=== PATIENT | female | born 1950 | race Caucasian/White ===

== ENCOUNTER → 2016-09-04 | Outpatient (CLI) | payer OTHER ==
[~2016-09-04] MED LIST: CLEOCIN HCL150 MG PO; LIPITOR10 MG PO; TOBRAMYCIN SULFA5 ML IO; UNKNOWN BP MED
== END ==
LOC: HYPER 07:11
DX: S81.802D Unspecified open wound, left lower leg, subsequent encounter (principal); S81.801D Unspecified open wound, right lower leg, subsequent encounter; I87.323 Chronic venous hypertension (idiopathic) with inflammation of bilateral lower extremity; L03.115 Cellulitis of right lower limb; I89.0 Lymphedema, not elsewhere classified; F17.210 Nicotine dependence, cigarettes, uncomplicated; X58.XXXD Exposure to other specified factors, subsequent encounter

== ENCOUNTER → 2016-10-16 | Outpatient (CLI) | payer OTHER | LOC: HYPER 09-13 09:47 | DX: I87.323 Chronic venous hypertension (idiopathic) with inflammation of bilateral lower extremity (principal); L97.821 Non-pressure chronic ulcer of other part of left lower leg limited to breakdown of skin; L97.811 Non-pressure chronic ulcer of other part of right lower leg limited to breakdown of skin; I89.0 Lymphedema, not elsewhere classified; F17.210 Nicotine dependence, cigarettes, uncomplicated ==

== ENCOUNTER → 2016-12-20 | Outpatient (CLI) | payer OTHER | LOC: HYPER 11-02 15:18 | DX: L03.115 Cellulitis of right lower limb (principal); I87.323 Chronic venous hypertension (idiopathic) with inflammation of bilateral lower extremity; I89.0 Lymphedema, not elsewhere classified; R26.89 Other abnormalities of gait and mobility; F17.200 Nicotine dependence, unspecified, uncomplicated ==

== ENCOUNTER → 2017-12-04 | Outpatient (CLI) | payer OTHER | LOC: HYPER 11-22 06:51 | DX: I89.0 Lymphedema, not elsewhere classified (principal); I87.323 Chronic venous hypertension (idiopathic) with inflammation of bilateral lower extremity; F17.210 Nicotine dependence, cigarettes, uncomplicated ==

== ENCOUNTER → 2017-12-11 | Outpatient (CLI) | payer OTHER | LOC: HYPER 07:02 | DX: I87.323 Chronic venous hypertension (idiopathic) with inflammation of bilateral lower extremity (principal); L97.821 Non-pressure chronic ulcer of other part of left lower leg limited to breakdown of skin; L97.811 Non-pressure chronic ulcer of other part of right lower leg limited to breakdown of skin; I89.0 Lymphedema, not elsewhere classified; F17.200 Nicotine dependence, unspecified, uncomplicated ==

== ENCOUNTER 2017-12-25 16:57 | Inpatient (IN) | payer OTHER ==
[~2017-12-25] VITALS: Ht 154.9 cm; Wt 113.4 kg
--- NOTE | ~2017-12-25 | HC ---
[place] [address] CONSULTATION Name: DIMITRI CORREA Joel Room #: 424-P [facility] IN M.R.#: [id number] Admission: 12/25/17 Attend Phys: Romero Herring MD Discharge: Date of : 51 Report #: [id number] THIS REPORT FOR: //name// CC: Chris García DATE OF SERVICE: 12/26/2017 CHIEF COMPLAINT: Lymphedema and ulceration, bilateral lower extremities. HISTORY: This is a 67-year-old female patient who has been followed on an outpatient basis in the wound center. She has longstanding history of lower extremity lymphedema, ulceration of her left leg. She was seen in the clinic yesterday, felt to have significant cellulitis with significant pain, increasing swelling and is admitted. PAST MEDICAL HISTORY: Positive for history of venous insufficiency, bilateral cellulitis of lower extremities, lymphedema of both lower extremities and history of sepsis. ALLERGIES: PENICILLIN. SOCIAL HISTORY: The patient smokes cigarettes 1 pack per day. No alcohol use. FAMILY HISTORY: Noncontributory. MEDICATIONS: Reviewed in the MAR. REVIEW OF SYSTEMS: CONSTITUTIONAL: The patient denies fever, chills or weight loss. NEUROLOGICAL: The patient denies focal weakness. ENT: The patient denies earache, nasal drainage or sore throat. CARDIOVASCULAR: The patient denies chest pain or palpitations or diaphoresis. PULMONARY: The patient denies cough or shortness of breath. GASTROINTESTINAL: The patient denies nausea, vomiting, diarrhea or abdominal pain. ORTHOPEDIC: The patient admitted to significant swelling, pain, drainage from the lower extremities, left greater than right. Other systems in a 14-point review of systems are negative. PHYSICAL EXAMINATION: VITAL SIGNS: At this time include pulse 85, respiratory rate 18, blood pressure 124/92, temperature 98.0. GENERAL: This is a chronically ill-appearing female patient who appears to be in minimal distress. HEENT: Head is normocephalic. Nose and throat are clear. [address] [address] CONSULTATION Name: DIMITRI CORREA Room #: [address] [place] [address] [place] .R.#: [id number] Admission: 12/25/17 Attend Phys: Romero Herring MD Discharge: Date of : 51 Report #: [id number] NECK: Supple. LUNGS: Diminished. HEART: Regular rhythm. ABDOMEN: Soft, obese, nontender. EXTREMITIES: Lower extremities demonstrates significant lymphedema of both lower extremities. There is open ulceration almost circumferential around the left ankle. There is nothing open on the right side. There are multiple areas of lymph fistulas. NEUROLOGIC: Alert and oriented and appropriate. LABORATORY DATA: Includes sodium 138, potassium 3.2, chloride 105, CO2 of 28, BUN 11, creatinine 0.8, glucose 93. White blood cell count of 6.7 with a hemoglobin of 13.6, hematocrit of 41.1, platelet count is 216,000. Sed rate is 50. CLINICAL IMPRESSION: 1. Ulceration, left lower extremity. 2. Bilateral lower extremity lymphedema. 3. Cellulitis, bilateral lower extremities. RECOMMENDATIONS: At this point in time, the patient has been started with antibiotic therapy, likely to be tailored, pending culture results. Blood cultures thus far showing no growth. We will ask PT, OT to see her for lymphedema therapy and compression bandaging. Recommend elevation of the lower extremities. Elevation of the foot of the bed. I appreciate being asked to see her in consultation. <ELECTRONICALLY SIGNED> By: Gilles Mathews MD 12/30/17 [id number] Gilles Mathews MD /nt
--- NOTE | ~2017-12-25 | HC ---
[facility] [place] [address] CONSULTATION Name: DIMITRI CORREA Joel Room #: 424-P [facility] IN M.R.#: [id number] Admission: 12/25/17 Attend Phys: Romero Herring MD Discharge: Date of : 51 Report #: [id number] THIS REPORT FOR: //name// CC: Chris García DATE OF SERVICE: 12/26/2017 INFECTIOUS DISEASES CONSULTATION REASON FOR CONSULTATION: I was asked to evaluate concerning lower extremity lymphedema and left lower extremity infected skin wounds. HISTORY OF PRESENT ILLNESS: The patient is a 67-year-old, with chronic lymphedema, who has had nonhealing wound to the left ankle and foot for approximately 3 months. She has been on and off oral antibiotics without benefit. Most recently, was on Levaquin within the last 2 weeks. Presents now with increased pain, more swelling, profound drainage without associated fever, chills or sweats. The pain is constant. Does improve some with narcotics. The pain got up to a 10/10 prior to her admission. She has taken Defiance as well as Tylenol alone at home. She reports no specific injury. She has been unable to use her lymphedema pumps. Lymphedema has been a progressive issue for her for the last 2 years. She does smoke cigarettes and is obese. She has had venous ablation procedures. She states her arterial flow has been adequate. REVIEW OF SYSTEMS: Skin as noted above. No reported lymphadenopathy. Denies any visual or mucosal changes. No recent dental work. No cardiopulmonary complaints. No GI or complaints. She now has a right upper extremity PICC. Denies any back or flank pain. She walks with a cane. Has not been able to drive for the last several months. Denies any diabetic or hypothyroid symptoms. ALLERGIES: PENICILLIN WITH HIVES TO HER FEET. DOES NOT KNOW IF SHE HAS TOLERATED CEPHALOSPORINS OR OTHER PENICILLIN GROUP. SHE HAS RECENTLY BEEN ON CLINDAMYCIN AND LEVAQUIN WITHOUT ISSUE. MEDICATIONS: Currently, on Levaquin and vancomycin. In addition, Lovenox, Lasix, Defiance. PAST MEDICAL HISTORY: Hypertension, lymphedema, tubal ligation, breast augmentation. FAMILY HISTORY: No family history of inheritable diseases. SOCIAL HISTORY: No significant alcohol intake. She does smoke cigarettes about [facility] [address] [place] [place] [address] CONSULTATION Name: DIMITRI CORREA Joel Room #: [facility]-P [facility] IN .R.#: [id number] Admission: 12/25/17 Attend Phys: Romero Herring MD Discharge: Date of : 51 Report #: [id number] a pack a day. Review of systems as noted above. PHYSICAL EXAMINATION: VITAL SIGNS: The patient was afebrile and hemodynamically stable. Pulse is 87, blood pressure 144/46, respiratory rate 18. GENERAL: She was alert and cooperative. She was on 2 liters of oxygen per nasal cannula. She was obese. She was lying in bed, in no acute distress. SKIN: With xerosis diffusely. EXTREMITIES: Bilateral lower extremity lymphedema with venous stasis dermatitis changes, left greater than right. She had ulcerations involving her left lower leg, ankle and foot region. Large amount of serous drainage. Very tender in this region. Surrounding erythema. Erythema did not extend beyond the lower leg. No tenderness in her thighs. The lymphedema was 4+ on the left, 3+ on the right. LYMPH: No lymphadenopathy. HEENT: Eyes unremarkable. Mouth unremarkable. Hearing unremarkable. ENT, otherwise unremarkable. NECK: Supple. LUNGS: Clear. HEART: Regular without appreciable murmur, gallop or rub. ABDOMEN: Obese, soft, nontender, no hepatosplenomegaly or mass. EXTREMITIES: She is able to move all extremities. Sensation in her feet were normal. Pulses in the feet were normal. She had good capillary refill. Cranial nerves intact. Muscle strength appeared normal throughout. LABORATORY STUDIES: Venous Dopplers negative for DVT. Blood cultures showing Gram-positive rods, 1 out of 2, cultures pending. Sedimentation rate 50. Lactate 0.9. CRP 24. Sodium 138, potassium 3.2, bicarbonate 28, creatinine 0.8. Hemoglobin 13.6, white count 6.7 and platelet count 216,000. Differential unremarkable. IMPRESSION: A 67-year-old with extensive lymphedema and changes of elephantiasis to her lower extremities, now with secondary skin and soft tissue infection with venous stasis skin breakdown. Along with this, she has significant amount of pain. Other issues include tobacco use, hypertension, obesity. RECOMMENDATION: We will continue with vancomycin and Levaquin. Would like the patient to research her previous antibiotic prescriptions to see if she has tolerated cephalosporins. I have discussed with her in detail during this visit [address] [place] [address] CONSULTATION Name: DIMITRI CORREA Room #: 424-P [facility] IN M.R.#: [id number] Admission: 12/25/17 Attend Phys: Romero Herring MD Discharge: Date of : 51 Report #: [id number] regarding other options including weight loss, smoking cessation, low sodium diet, more aggressive leg elevation and continued wound care. <ELECTRONICALLY SIGNED> By: Timur Chauhan MD 12/27/17 1029 1418 1957 Timur Chauhan MD /nt
[2017-12-25 17:27] VITALS: BP 156/51
[2017-12-25 19:20] LABS: ABSOLUTE NEUTROPHILS 4.6 thou/uL (1.4-8.2); BASOPHILS 0.7 % (0.0-2.0); EOSINOPHILS 1.1 % (0.0-3.0); HEMATOCRIT 41.1 % (37.0-47.0); HEMOGLOBIN 13.6 gm/dL (12.0-15.0); LYMPHOCYTES 19.4 % (24.0-44.0); MCH 31.2 pg (26.0-34.0); MCV 94.6 fL (80.0-100.0); MONOCYTES 9.2 % (1.0-8.0); PLATELET COUNT 216 thou/uL (150-400); POLYS 69.6 % (36.0-66.0); RBC 4.35 mil/uL (4.20-5.00); RDW 17.6 % (10.5-14.5); WBC 6.7 thou/uL (4.0-11.0)
[2017-12-25 19:28] LABS: CALCIUM 8.5 mg/dL (8.5-10.1); CREATININE 0.8 mg/dL (0.6-1.0); POTASSIUM 3.2 mmol/L (3.5-5.1)
[2017-12-25 21:31] VITALS: BP 134/44
[2017-12-25 21:50] VITALS: BP 154/60
[2017-12-26 04:40] VITALS: BP 143/43
[2017-12-26 07:19] VITALS: BP 144/46
[2017-12-26 10:57] VITALS: BP 144/46
[2017-12-26 15:39] VITALS: BP 124/92
[2017-12-26 19:30] VITALS: BP 159/57
[2017-12-27 02:28] VITALS: BP 188/74
[2017-12-27 07:56] LABS: HEMATOCRIT 32.9 % (37.0-47.0); MCH 31.8 pg (26.0-34.0); MCHC 33.5 g/dL (28.0-37.0); PLATELET COUNT 216 thou/uL (150-400); RBC 3.46 mil/uL (4.20-5.00); RDW 17.6 % (10.5-14.5); WBC 4.7 thou/uL (4.0-11.0)
[2017-12-27 08:00] LABS: CREATININE 0.7 mg/dL (0.6-1.0); MAGNESIUM 1.6 mg/dL (1.8-2.4); POTASSIUM 3.9 mmol/L (3.5-5.1)
[2017-12-27 08:54] LABS: ABSOLUTE NEUTROPHILS 2.3 thou/uL (1.4-8.2); PLATELET ESTIMATE NORMAL
[2017-12-27 15:51] VITALS: BP 133/52
[2017-12-27 19:55] VITALS: BP 137/49; BP 159/73
[2017-12-28 03:49] VITALS: BP 122/42
[2017-12-28 07:30] VITALS: BP 139/48
[2017-12-28 14:25] VITALS: BP 144/46
[2017-12-28 19:31] VITALS: BP 142/47
[2017-12-29 04:22] VITALS: BP 154/57
[2017-12-29 08:40] VITALS: BP 149/52
[2017-12-29 20:20] VITALS: BP 127/56
[2017-12-30 03:58] VITALS: BP 134/59
[2017-12-30 08:00] VITALS: BP 151/62
[2017-12-30 16:30] VITALS: BP 165/66
[2017-12-30 20:30] VITALS: BP 130/49
[2017-12-31 04:30] VITALS: BP 121/58
[2017-12-31 06:11] LABS: HEMATOCRIT 36.9 % (37.0-47.0); HEMOGLOBIN 12.6 gm/dL (12.0-15.0); MCH 31.9 pg (26.0-34.0); MCHC 34.2 g/dL (28.0-37.0); MCV 93.3 fL (80.0-100.0); RBC 3.96 mil/uL (4.20-5.00); RDW 17.1 % (10.5-14.5); WBC 5.2 thou/uL (4.0-11.0)
[2017-12-31 06:24] LABS: CALCIUM 8.8 mg/dL (8.5-10.1); CREATININE 0.7 mg/dL (0.6-1.0); POTASSIUM 3.1 mmol/L (3.5-5.1)
[2017-12-31 07:15] VITALS: BP 142/52
[2017-12-31 16:04] VITALS: BP 136/75
[2017-12-31 19:40] VITALS: BP 126/48
[2018-01-01 03:30] VITALS: BP 143/59
[2018-01-01 07:45] VITALS: BP 136/54
[2018-01-01 11:36] VITALS: BP 144/46
[2018-01-01 16:06] VITALS: BP 144/46
== END 2018-01-01 16:48 | disposition home health service (06) | DRG 602 ==
LOC: ER 16:57 → 4E 19:38 → EROBS 19:38 → 4E 21:37
PROVIDERS: Emergency Medicine; Internal Medicine
PROC: B54MZZA Ultrasonography of Right Upper Extremity Veins, Guidance (ICD-10-PCS; principal; 2017-12-25)
PROC: 05HY33Z Insertion of Infusion Device into Upper Vein, Percutaneous Approach (ICD-10-PCS; principal; 2017-12-25)
DX: L03.116 Cellulitis of left lower limb (principal); E43 Unspecified severe protein-calorie malnutrition; L97.921 Non-pressure chronic ulcer of unspecified part of left lower leg limited to breakdown of skin; Z68.42 Body mass index [BMI] 45.0-49.9, adult; E66.01 Morbid (severe) obesity due to excess calories; I89.0 Lymphedema, not elsewhere classified; I83.029 Varicose veins of left lower extremity with ulcer of unspecified site; L03.115 Cellulitis of right lower limb; E87.6 Hypokalemia; F17.210 Nicotine dependence, cigarettes, uncomplicated; I10 Essential (primary) hypertension; Z79.2 Long term (current) use of antibiotics; Z88.0 Allergy status to penicillin; Z79.899 Other long term (current) drug therapy
CPT/HCPCS: 10084; 27001

== ENCOUNTER → 2017-12-25 | Outpatient (CLI) | payer OTHER | LOC: HYPER 07:01 | DX: I87.312 Chronic venous hypertension (idiopathic) with ulcer of left lower extremity (principal); L97.821 Non-pressure chronic ulcer of other part of left lower leg limited to breakdown of skin; I89.0 Lymphedema, not elsewhere classified; F17.210 Nicotine dependence, cigarettes, uncomplicated ==

== ENCOUNTER 2019-04-29 15:22 | Inpatient (IN) | payer OTHER ==
[~2019-04-29] VITALS: Ht 154.9 cm; Wt 98.9 kg
[2019-04-29 15:23] VITALS: BP 116/62
[2019-04-29] MEDS ORDERED: KEFLEX500 M2 PO (15:28)
[2019-04-29 16:33] LABS: HEMATOCRIT 39.1 % (37.0-47.0); HEMOGLOBIN 12.8 gm/dL (12.0-15.0); MCHC 32.7 g/dL (28.0-37.0); RBC 4.25 mil/uL (4.20-5.00); RDW 14.5 % (10.5-14.5); WBC 19.5 thou/uL (4.0-11.0)
[2019-04-29 16:42] LABS: ANION GAP 7 mmol/L (7-16); BUN 21 mg/dL (7-18); CALCIUM 9.4 mg/dL (8.5-10.1); CHLORIDE 94 mmol/L (98-107); CO2 30 mmol/L (21-32); CREATININE 0.8 mg/dL (0.6-1.0); GLUCOSE 108 mg/dL (74-106); POTASSIUM 3.3 mmol/L (3.5-5.1); SODIUM 131 mmol/L (136-145)
[2019-04-29 16:52] LABS: ALBUMIN 2.4 g/dL (3.4-5.0); LIPASE 73 U/L (73-393); SGOT 59 U/L (15-37); SGPT 14 U/L (30-65); TOTAL BILIRUBIN 0.5 mg/dL (<0.1-1.0); TOTAL PROTEIN 7.7 g/dL (6.4-8.2); TROPONIN-I <0.06 ng/mL (<0.06)
[2019-04-29 17:12] LABS: ABSOLUTE NEUTROPHILS 17.9 thou/uL (1.4-8.2); ANISOCYTOSIS 1+; PLATELET COUNT 233 thou/uL (150-400)
[2019-04-29 17:37] VITALS: BP 131/89
[2019-04-29 17:59] VITALS: BP 128/45
[2019-04-29 18:40] VITALS: BP 153/46
--- NOTE | 2019-04-29 19:32 | EKG ---
[address] [email or web address] [address] ELECTROCARDIOGRAM REPORT Name: CHING CORREAAndrea Maldonado Room #: 208-P ADM IN M.R.#: [id number] Admission: 04/29/19 Attend Phys: Cass Powell Discharge: Date of : 51 Report #: [id number] THIS REPORT FOR: //name// 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 : 1950 Requested By: Laura Dominguez Order Number: [id number] MD: Jacky Chaparro Measurements Intervals [place] Rate: 99 P: CA: QRS: 40 QRSD: 94 T: 35 QT: 301 QTc: 387 Interpretive Statements Possible multifocal atrial tachycardia Poor R wave progression Compared to ECG 02/03/2016 18:36:09 Multifocal atrial tachycardia has replaced sinus tachycardia Electronically Signed On 04-29-2019 19:32:09 [employer]UEPRINT [employer]SEM[employer]ER by Jacky Chaparro [email or web address] <ELECTRONICALLY SIGNED> By: Jacky Chaparro MD, [facility] 04/29/191931 1547 1547 Jacky Chaparro MD, FACC /EPI
[2019-04-29 19:53] VITALS: BP 131/40
[2019-04-30 00:38] VITALS: BP 116/45
[2019-04-30 04:33] VITALS: BP 117/54
--- NOTE | 2019-04-30 05:17 | NUR ---
ASSUMED CARE OF PATIENT AT 1900. VSS, AFEBRILE. ADMISSION COMPLETE, PICTURES TAKEN. PAIN MEDS GIVEN NEEDED. ALY PUREWICK CATHETER IN PLACE. EDUCATED ABOUT AFIB AND APIXIBAN. POC GOALS ESTABLISHED, WILL CONTINUE TO MONITOR.
[2019-04-30 08:15] VITALS: BP 103/40
[2019-04-30 08:19] LABS: ABSOLUTE NEUTROPHILS 12.3 thou/uL (1.4-8.2); BASOPHILS 0.2 % (0.0-2.0); EOSINOPHILS 0.1 % (0.0-3.0); HEMATOCRIT 33.8 % (37.0-47.0); LYMPHOCYTES 5.3 % (24.0-44.0); MCH 29.3 pg (26.0-34.0); MCHC 31.9 g/dL (28.0-37.0); MONOCYTES 8.3 % (1.0-8.0); PLATELET COUNT 194 thou/uL (150-400); POLYS 86.1 % (36.0-66.0); RBC 3.67 mil/uL (4.20-5.00); RDW 14.6 % (10.5-14.5); WBC 14.2 thou/uL (4.0-11.0)
[2019-04-30 08:29] LABS: HEMOGLOBIN 10.8 gm/dL (12.0-15.0)
[2019-04-30 08:33] LABS: CALCIUM 8.5 mg/dL (8.5-10.1); CREATININE 0.6 mg/dL (0.6-1.0); POTASSIUM 3.5 mmol/L (3.5-5.1)
--- NOTE | 2019-04-30 08:48 | 2DMMODE ---
[facility] [address] [place] [address] 2 D/M-MODE ECHOCARDIOGRAM Name: DIMITRI CORREA Room #: 208-P [facility] IN ..#: [id number] Admission: 04/29/19 Attend Phys: Cass Wick Discharge: Date of : 51 Report #: [id number] THIS REPORT FOR: //name// APPROVED REPORT Study performed: 04/30/2019 07:51:03 EXAM: Comprehensive 2D, Doppler, and color-flow Echocardiogram Patient Location: Bedside Room #: 208 Status: routine BSA: 2.08 HR: 75 bpm BP: 117/54 mmHg Rhythm: NSR Other Information Study Quality: Good Indications AFIB. HX: HTN, lymphedema, tobacco abuse. 2D Dimensions RVDd: 41.41 mm IVSd: 8.99 (7-11mm) LVOT Diam: 20.17 (18-24mm) LVDd: 41.83 mm PWd: 8.99 (7-11mm) Ascending Ao: 26.94 (22-36mm) LVDs: 27.08 (25-40mm) Aortic Root: 30.68 mm Volumes Left Atrial Volume (Systole) Single Plane 4CH: 50.22 mL Single Plane 2CH: 60.24 mL LA ESV Index: 29.00 mL/m2 Aortic Valve AoV Peak Placido.: 2.25 m/s AO Peak Gr.: 20.19 mmHg LVOT Max P.19 mmHg AO Mean Gr.: 11.56 mmHg AO V2 Mean: 1.64 m/s LVOT Max V: 1.43 m/s AO V2 VTI: 47.72 cm JONAH Vmax: 2.03 cm2 Mitral Valve E/A Ratio: 0.8 [facility] [employer] [place] [address] 2 D/M-MODE ECHOCARDIOGRAM Name: DIMITRI CORREA Room #: 208-[facility] IN [facility].#: [id number] Admission: 04/29/19 Attend Phys: Cass Wick Discharge: Date of : 51 Report #: [id number] MV Decel. Time: 249.81 ms MV E Max Placido.: 1.32 m/s MV A Placido.: 1.58 m/s MV PHT: 72.44 ms IVRT: 44.98 ms Pulmonary Valve PV Peak Placido.: 1.34 m/s PV Peak Gr.: 7.13 mmHg Tricuspid Valve TR Peak Placido.: 3.33 m/s RAP Estimate: 15.00 mmHg TR Peak Gr.: 44.37 mmHg PA Pressure: 59.00 mmHg Left Ventricle The left ventricle is normal size. There is normal LV segmental wall motion. There is normal left ventricular wall thickness. Left ventricular systolic function is normal. LVEF is 60-65%. Mild diastolic dysfunction Right Ventricle The right ventricle is normal size. The right ventricular systolic function is normal. Atria The left atrium size is normal. Lipomatous hypertrophy of atrial septum The right atrium size is normal. Aortic Valve The aortic valve is normal in structure. No aortic regurgitation is present. There is no aortic valvular stenosis. Mitral Valve The mitral valve is normal in structure. Trace mitral regurgitation. Tricuspid Valve The tricuspid valve is normal in structure. Trace tricuspid regurgitation. Moderate pulmonary hypertension with an estimated PAP of 50 mmHg. Pulmonic Valve The pulmonary valve is normal in structure. Trace pulmonic regurgitation. Great Vessels [facility] [place] [address] [place] [address] 2 D/M-MODE ECHOCARDIOGRAM Name: DIMITRI CORREA Room #: 208-P [facility] IN M.R.#: [id number] Admission: 04/29/19 Attend Phys: Cass Wick Discharge: Date of : 51 Report #: [id number] The aortic root is normal in size. The ascending aorta is normal in size. IVC is dilated and collapses <50% with inspiration. Pericardium There is no pericardial effusion. <Conclusion> Left ventricular systolic function is normal. There is normal LV segmental wall motion. LVEF is 60-65%. Mild diastolic dysfunction Lipomatous hypertrophy of atrial septum The aortic valve is normal in structure. No aortic regurgitation or stenosis The mitral valve is normal in structure. Trace mitral regurgitation. Trace tricuspid regurgitation. Pulmonary artery pressure of 50 mmHg. There is no pericardial effusion. <ELECTRONICALLY SIGNED> By: Jacky Chaparro MD, [facility] 04/30/19846 6 6 Jacky Chaparro MD, FAC /INF
--- NOTE | 2019-04-30 12:06 | NUR ---
ORDERS RECEIVED FOR LYMPHEDEMA THERAPY. CHART REVIEWED. SPOKE WITH TRAINING AND DEVELOPMENT DIRECTORDOUGLAS. WOUND CARE TO SEE Pt FIRST AND ADVISE LYMPHEDEMA IF THERE ARE ANY SPECIAL NEEDS, IE DRESSING/LOTIONS ETC, PRIOR TO WRAPPING. WILL SEE Pt TOMORROW IN THE AM.
[2019-04-30 15:59] VITALS: BP 120/51
--- NOTE | 2019-04-30 16:35 | NUR ---
met with patient who reports she lives at home alone. All needs on one level. Patient uses a cane for ambulation and has a walker if needed. She is rec HH [facility]. She has no hx of skilled care. PCP is [facility] Dr Teodoro Pruitt. Patient hopeful to return home with care. She does not have oxygen at home. [email or web address] following
--- NOTE | 2019-05-01 03:59 | NUR ---
1900, PT ALERT AND ORIENTED. DENIES CP, OR ANY KIND OF PAIN. VSS. PT OPPOSES Q2 TURNS BECAUSE IT "HURTS SO BAD". LE ELEVATED BY TRENDING THE BED AND HEAD RAISED. POSITION WELL TOLERATED. PT WAS NPO SINCE 0000, FOR STRESS TEST PART 2. WILL CONTINUE TO MONITOR. PT OTHERWISE STABLE. LYPHEDEMA WRAPS TO BE APPLIED THIS AM.
[2019-05-01 05:00] VITALS: BP 148/79
[2019-05-01 07:24] VITALS: BP 144/43
[2019-05-01 11:33] VITALS: BP 145/44
[2019-05-01 16:00] VITALS: BP 141/47
--- NOTE | 2019-05-01 16:48 | NUR ---
jason lopez and reports skilled better option for patient. Discussed with patient who repports "we will see" she is not committing. Dtr reports outside of patients room she is a hoarder. She sleeps in a reclyner for years. She has not left the home since December. She has groceries delivered to the home. Sp with Tyree BARRAGAN their last visit to home 04/28/19 prior to admission to hospital. Dtr reports patient noncompliant. She cont to smoke and drink soda, eats very unhealthy. Phys likely may need to inform patient of need for post acute care.
--- NOTE | 2019-05-01 17:00 | NUR ---
PT CARE ASSUMED APPROX 0700. ASSESSMENTS CHARTED. PT REPORTED SOA THIS MORNING. SHE RECEIVED BREATHING TREATMENT AND O2 TITRATION UP TO 4L AND SOA RESOLVED. REPORTS ADEQUATE PAIN MANAGEMENT TO 6/10 BLE PAIN. TURNING Q2 HRS WHEN PT ALLOWS. ELEVATING BLE. PT COMPLYING WITH POC. TOELRATING POC. DENIES QUESTIONS OR CONCERNS REGARDING POC. DAUGHTER AT BEDSIDE AND ALSO RECEIVED CLINICAL UPDATE AND REPORTS UNDERSTANDING POC. LYMPHEDEMA WRAPS PLACED THIS AM. PT TOLERATED WELL. COMPLETED DIAGNOSTIC STUDY WITHOUT ISSUE. NO DISTRESS NOTED AT THIS TIME.
[2019-05-01 20:03] VITALS: BP 112/43
[2019-05-02 04:09] VITALS: BP 129/45
[2019-05-02 05:30] LABS: HEMATOCRIT 35.2 % (37.0-47.0); HEMOGLOBIN 11.1 gm/dL (12.0-15.0); MCH 29.5 pg (26.0-34.0); MCHC 31.6 g/dL (28.0-37.0); MCV 93.3 fL (80.0-100.0); RBC 3.77 mil/uL (4.20-5.00); RDW 14.7 % (10.5-14.5); WBC 16.9 thou/uL (4.0-11.0)
--- NOTE | 2019-05-02 05:35 | NUR ---
ASSUMED CARE AT 1900. PT ALERT AND ORIENTED VITALS STABLE. VOIDING BY EXTERNAL FEMALE CATHETER. REPORTS PAIN WITH ACTIVITIES/ ANY SLIGHT MOVEMENT . PT REFUSES Q2 TURNS DUE TO PAIN. NOTED BEGINNING OF SKIN BREAKDOWN ON THE RIGHT BUTTOCK. BARRIER CREAM APPLIED. PT ENCOURAGED TO TURN/ ALLOW REPOSITIONING TOLERATED. DENIES N/V/D. MAINTENANCE FLUIDS AT 75MK/HR. WILL CONTINUE TO FOLLOW PLAN OF CARE.
[2019-05-02 05:37] LABS: CALCIUM 8.5 mg/dL (8.5-10.1); CREATININE 0.6 mg/dL (0.6-1.0); MAGNESIUM 1.8 mg/dL (1.8-2.4); POTASSIUM 3.7 mmol/L (3.5-5.1)
[2019-05-02 07:25] VITALS: BP 118/59
--- NOTE | 2019-05-02 10:35 | NUR ---
CHECKED IN ON Pt TO MAKE SURE WRAPS WERE NOT RUBBING. Pt REPORTS THE FELT GOOD AND WERE DOING FINE. WILL SEE Pt SUNDAY TO RE-DO WRAPS.
[2019-05-02 11:38] VITALS: BP 132/50
[2019-05-02 14:19] VITALS: BP 132/50
--- NOTE | 2019-05-02 14:46 | NUR ---
Dc planning needs discussed with the pt at bedside. She was hoping to be strong encough to dc home with resumption of [facility] at dc. Therapy progress notes reviewed with her. Pt needs to be able to transfer indep and gait to the bathroom and kitchen without assistance. She is currently only able to take a few steps and is max assist for tx. She was tearful but agreeable to snf stay. Medicare skilled benefit discussed as well as possible [facility] referral for acute rehab. [facility] is not able to accept. Listing for snfs reviewed. She is interested in [facility], [facility], [facility] or [facility]. Dc tool and production planner to fax referrals. Pt could possible come to outpt therapy for lymphodema tx from the snf.
[2019-05-02 16:13] VITALS: BP 120/54
--- NOTE | 2019-05-02 16:36 | HC ---
[facility] [place] [address] [place] [address] CONSULTATION Name: THIAGO CORREAORAAndrea Maldonado Room #: 208-P [facility] IN .R.#: [id number] Admission: 04/29/19 Attend Phys: Cass Powell Discharge: Date of : 51 Report #: [id number] THIS REPORT FOR: //name// CC: Cass García DATE OF SERVICE: 04/30/2019 INFECTIOUS DISEASE CONSULTATION REASON FOR CONSULTATION: I was asked to evaluate concerning lower extremity cellulitis with chronic lymphedema. HISTORY OF PRESENT ILLNESS: The patient was a 69-year-old known history of chronic lymphedema with elephantiasis, changes to both lower extremities. She remains home bound and has a visiting physician. Over the last week due to increased erythema, tenderness, low-grade fever and mild chills. She was placed on cephalexin. No improvement with this. She is now hospitalized for further treatment. On presentation, her white count was 19,000. She has remained afebrile. Vital signs have been stable. She has blood glucose under control less than 150. No nausea, vomiting or diarrhea. No dysuria or frequency. Intermittent cough as the patient continues to smoke. Clear sputum. No diarrhea. PAST MEDICAL HISTORY: Hypertension, lymphedema, tubal ligation, breast augmentation. She has had venous ablation procedures. ALLERGIES: PENICILLIN with HIVES, although does tolerate cephalosporins. MEDICATIONS: As noted on her MAR, now on clindamycin. FAMILY HISTORY: Noncontributory. SOCIAL HISTORY: Basically housebound. Smokes cigarettes. No significant alcohol intake. PHYSICAL EXAMINATION: VITAL SIGNS: Afebrile, hemodynamically stable. Her weight was 218 pounds. SKIN: With xerosis, ichthyosis along with 4+ lower extremity lymphedema with elephantiasis changes to the skin. Moderate amount of serous drainage. Cellulitis, right lower extremity greater than left. Some involvement up to her thighs. No other palpable adenopathy. HEENT: Eyes without scleral icterus. Mouth without mucositis. NECK: Supple. LUNGS: Clear. HEART: Regular, without murmur. [facility] [address] [place] [address] CONSULTATION Name: DIMITRI CORREA Room #: 208-[facility] IN ..#: [id number] Admission: 04/29/19 Attend Phys: Cass Powell Discharge: Date of : 51 Report #: [id number] ABDOMEN: Obese, soft and nontender. No hepatosplenomegaly or mass appreciated. EXTREMITIES: As noted above. She was able to move all extremities. Echocardiogram, normal EF. LABORATORY STUDIES: Creatinine 0.6. Hemoglobin 10, WBC 14, platelet 194,000. Blood cultures 1 of 2 showing Gram-positive rods. BNP 1700. Liver function test normal, AST 59, ALT 19. Basilar atelectasis on chest x-ray. IMPRESSION: Bilateral lower extremity venous stasis disease with associated cellulitis caused for her presentation with component of lymphangitis. Atrial fibrillation, hypokalemia, marked debility, venous insufficiency, tobacco use, obesity. RECOMMENDATIONS: We will continue with clindamycin at this point in time. Has history of PENICILLIN allergy. She does tolerate cephalexin. We will see how she does with this considering her white count did drop from yesterday. Continue with edema control as best we can. Also, recommend discontinue tobacco use and weight loss diet. <ELECTRONICALLY SIGNED> By: Timur Chauhan MD 05/02/19 1636 51 0001 Timur Chauhan MD /nt
[2019-05-02 20:25] VITALS: BP 120/53
[2019-05-03 05:07] VITALS: BP 136/58
[2019-05-03 07:55] VITALS: BP 152/65
[2019-05-03 11:50] VITALS: BP 144/66
[2019-05-03 13:34] LABS: HEMATOCRIT 38.6 % (37.0-47.0); HEMOGLOBIN 12.6 gm/dL (12.0-15.0); MCH 29.9 pg (26.0-34.0); MCHC 32.6 g/dL (28.0-37.0); MCV 91.7 fL (80.0-100.0); RBC 4.21 mil/uL (4.20-5.00); RDW 14.6 % (10.5-14.5); WBC 10.9 thou/uL (4.0-11.0)
[2019-05-03 13:43] LABS: CALCIUM 9.5 mg/dL (8.5-10.1); CREATININE 0.6 mg/dL (0.6-1.0); MAGNESIUM 1.7 mg/dL (1.8-2.4); POTASSIUM 3.8 mmol/L (3.5-5.1)
[2019-05-03 15:45] VITALS: BP 135/53
--- NOTE | 2019-05-03 18:11 | NUR ---
ASSUMMED PT CARE AT APPROXIMATELY 0700. PT A&O X4. ASSESSMENT CHARTED. FALL PRECAUTIONS IN PLACE. PT DENIES HAVING CHEST PAIN. PT STATES SHE BECOMES SOB ON EXERSION. O2 SATS STABLE. PT DENIES HAVING ACUTE PAIN. VITAL SIGNS STABLE. BLOOD SUGARS STABLE. PT AND PT FAMILY EDUCATED ABOUT POC. PT AND PT'S FAMILY STATED UNDERSTANDING AND DENIED HAVING FUTHER QUESTIONS. NOTIFIED DR OF PT NOT HAVING A BM IN SEVERAL DAYS. DR ORDERED STOOL SOFTENER. IMPLEMENTED MED. OFFERED PT PRN MIRALAX. PT DECLINED MIRALAX. PT HAS NOT HAD A BM TODAY. PT COMFORTABLE IN BED. PT DENIES HAVING FURTHER CONCERNS AT THIS MOMENT.
[2019-05-03 20:04] VITALS: BP 121/57
--- NOTE | 2019-05-03 20:37 | HC ---
[facility] [place] [address] CONSULTATION Name: CORREADIMITRI Joel Room #: 208-P [facility] IN ..#: [id number] Admission: 04/29/19 Attend Phys: Cass Powell Discharge: Date of : 52 Report #: [id number] THIS REPORT FOR: //name// CC: Cass García DATE OF SERVICE: 04/30/2019 CHIEF COMPLAINT: Cellulitis, bilateral lower extremities with lymphedema. HISTORY OF PRESENT ILLNESS: This is a 69-year-old female patient who was admitted through the Emergency Department. She has increasing pain, swelling, redness and drainage. She came in through the Emergency Department, was found to be septic and has been admitted to the hospital. I have been asked to see her with regard to wound care. The patient notes moderate discomfort in both legs with drainage and some odor. PAST MEDICAL HISTORY: Positive for chronic lymphedema to her lower legs, previous breast augmentation, chronic productive cough, atrial fibrillation and morbid obesity. ALLERGIES: PENICILLIN. SOCIAL HISTORY: Negative for alcohol use. She has a [id number] history of smoking and continues to smoke. FAMILY HISTORY: Noncontributory. MEDICATIONS: Include Tylenol, ipratropium, albuterol, ammonium lactate, Eliquis, budesonide, clindamycin, diltiazem, insulin, pantoprazole, zolpidem. REVIEW OF SYSTEMS: CONSTITUTIONAL: The patient does complain of fever or chills. Denies recent weight loss. NEUROLOGICAL: The patient denies focal weakness, numbness or tingling. EYES: The patient denies visual changes, redness, or drainage. ENT: The patient denies earache, drainage or sore throat. CARDIOVASCULAR: The patient denies chest pain, palpitations or diaphoresis. PULMONARY: The patient denies cough or shortness of breath. GASTROINTESTINAL: The patient denies nausea or abdominal pain. ORTHOPEDIC: The patient does complain of pain, swelling and drainage from her lower extremities. Other systems in a 14-point review of systems are negative. PHYSICAL EXAMINATION: VITAL SIGNS: Include temperature 36.4, pulse 58, respiratory rate 20, blood [facility] [address] [place] [address] CONSULTATION Name: DIMITRI CORREA Joel Room #: 208-P [facility] IN .R.#: [id number] Admission: 04/29/19 Attend Phys: Cass Powell Discharge: Date of : 51 Report #: [id number] pressure 120/51. GENERAL: This is a well-developed female patient who appears to be in mild discomfort. HEENT: Head normocephalic. Nose and throat clear. NECK: Supple. LUNGS: Diminished. HEART: Irregular without murmur. ABDOMEN: Soft. Bowel sounds present, obese, nontender. EXTREMITIES: Lower extremities demonstrate a pronounced lymphedema to both lower extremities. There is cellulitis bilaterally from her feet up to her legs. She has significant lipodermatosclerosis and hyperkeratosis to her skin. There is some odor present. LABORATORY DATA: Include sodium 132, potassium 3.5, chloride 98, CO2 of 30, BUN 16, creatinine 0.6, glucose 105. White blood cell count is 14.2 with hemoglobin 10.8. Lactic acid is 1.5, albumin is low at 2.4. CLINICAL IMPRESSION: 1. Cellulitis, bilateral lower extremities. 2. Lymphedema, uncontrolled, bilateral lower extremities. 3. Morbid obesity. 4. Sepsis due to cellulitis. 5. Atrial fibrillation with rapid ventricular response and with severe debility. 6. Severe protein-calorie malnutrition. 7. Tobacco abuse. RECOMMENDATIONS: We will recommend lymphedema therapy and some compression cautiously with her underlying cellulitis. She will need to elevate her legs. Empiric antibiotics pending culture and sensitivity would be appropriate. She will need aggressive nutritional support, continuation of current medications. The patient is agreeable to current plan. I appreciate being asked to see her in consultation. <ELECTRONICALLY SIGNED> By: Gilles Mathews MD 05/03/19 2037 1732 [id number] Gilles Mathews MD /nt
--- NOTE | 2019-05-04 04:37 | NUR ---
ASSUMED PT CARE AT 1900. VSS. PT A&0X4, SA ON THE MONITOR, ON 5L O2 LAST NOC. INCONTINENT; EXTERNAL CATH IN PLACE, STILL BM YET DESPITE LACTULOSE YESTERDAY. REFUSED TURNS, STATED SHE WAS COMFORTABLE, PT HAD AN UNEVENTFUL NIGHT, STABLE, WILL CONTINUE TO MONITOR.
[2019-05-04 04:44] LABS: HEMATOCRIT 36.6 % (37.0-47.0); HEMOGLOBIN 11.6 gm/dL (12.0-15.0); MCH 29.6 pg (26.0-34.0); MCHC 31.7 g/dL (28.0-37.0); MCV 93.1 fL (80.0-100.0); RBC 3.93 mil/uL (4.20-5.00); RDW 14.7 % (10.5-14.5)
[2019-05-04 04:54] LABS: CALCIUM 8.8 mg/dL (8.5-10.1); CREATININE 0.5 mg/dL (0.6-1.0); MAGNESIUM 1.7 mg/dL (1.8-2.4); POTASSIUM 3.8 mmol/L (3.5-5.1)
[2019-05-04 05:52] VITALS: BP 136/59
[2019-05-04 07:30] VITALS: BP 153/66
[2019-05-04 11:15] VITALS: BP 132/42
[2019-05-04 16:00] VITALS: BP 113/51
[2019-05-04 16:16] LABS: BE(vivo) 7.1 mmol/L (-2 to +3); HCO3 33.9 mmol/L (22.0-26.0); PCO2 56.5 mmHg (35.0-45.0); PO2 60.2 mmHg (80.0-100.0); pH 7.396 (7.360-7.450); sO2 90.5 % (92.0-98.0)
[2019-05-04 18:40] LABS: APTT 29.9 Seconds (24.5-32.8); INR 1.1; PROTIME 11.8 Seconds (9.3-11.4)
--- NOTE | 2019-05-04 18:48 | NUR ---
PATIENT CARE ASSUMED AT SHIFT CHANGE, ASSESSMENTS CHARTED, VSS, NO COMPLAINTS OF PAIN. CALL TO DR MORSE AT 1110 TO REPORT PHARMACY REPORTING BACILLUS IS INTERMIDIATE TO CLINDAMYCIN. WILL CONTINUE TO MONITOR
[2019-05-04 18:54] LABS: HEMATOCRIT 39.6 % (37.0-47.0); HEMOGLOBIN 12.8 gm/dL (12.0-15.0); MCH 29.6 pg (26.0-34.0); MCHC 32.4 g/dL (28.0-37.0); MCV 91.6 fL (80.0-100.0); RBC 4.32 mil/uL (4.20-5.00); RDW 14.7 % (10.5-14.5); WBC 12.5 thou/uL (4.0-11.0)
[2019-05-04 19:49] VITALS: BP 126/52
[2019-05-05 03:56] VITALS: BP 159/83
--- NOTE | 2019-05-05 05:09 | NUR ---
1900: PT ALERT AND ORIENTED DURING CHANGE OFSHIFT. REPORTS HAVING BEEN " SICK" OF LATE BUT STATES SHE FEELS BETTER. STILL EXPERIENCING SOME DIFFICULTIES BREATHING, RT NOTIFIED FOR BREATHING TREATMENT. EXTERNAL FEMALE CATHETER IN PLACE. NO FURTHER CONCERNS. WILL CONTINUE TO MONITOR.
[2019-05-05 08:00] VITALS: BP 129/53
--- NOTE | 2019-05-05 10:11 | NUR ---
WOUND CARE F/U Milana OT performing care to bilat lower legs lymphedema therapy, legs less edematous, less reddness. large amt dry flakey skin, pt c/o pain w/ ulcer posterior left thigh, was present on admission, also breakdown now left buttock, OT informed Monica wound RN w/ DR ROBBINS, states dr shaquille ellis and border foam drsg, to see pt later today and write orders, staff pharmacist hospitalMITCH Woodson informed
[2019-05-05 12:00] VITALS: BP 150/58
--- NOTE | 2019-05-05 12:09 | NUR ---
met with patient and offered referral to [facility] but patient wants to go to [facility]. [facility] will have bed avail in am. Dtr wanted to sp with SW but she has left and no phone number for dtr.
[2019-05-05 15:36] LABS: CLARITY CLEAR; COLOR YELLOW; SOURCE RIGHT CHEST; TOTAL VOLUME 23 mL
[2019-05-05 15:48] LABS: BF NUCLEATED CELLS 54; BF RBC 229
[2019-05-05 16:00] VITALS: BP 123/60
--- NOTE | 2019-05-05 18:13 | NUR ---
ASSESSMENT CHARTED. PT ALERT AND ORIENTED. VSS. WOUND CARE AND LEG WRAP DRESSING COMPLETED BY LYMPHEDEMA NURSE. IV ABX GIVEN ORDERED. TURNED AND CHANGED Q 2 HOURS AND NEEDED. NO CONCERNS AT THIS TIME. WILL CONTINUE TO MONITOR.
[2019-05-05 18:31] LABS: BF MACROPHAGE 15; BF NEUTROPHILS 35
[2019-05-05 20:11] VITALS: BP 138/39
--- NOTE | 2019-05-06 00:35 | NUR ---
ASSESSMENT: PT REMAIN ALERT AND ORIENT TIMES FOUR. C/O LE DISCOMFORT, PRN PAIN MEDICATION GIVEN WITH GOOD RELIEF. ALSO, COMPLAINED THAT LEGS WERE "HOT" IN THE WRAPS. ICE BAGS WERE INITIATED BY DAY RN, PT SEEMED TO LIKE THE ICE BAGS AND STATE THAT THEY WORKED BY COOLING HER LEGS. EXTERNAL ALY CATH IS FUNCTIONING WELL, CLEAR YELLOW OUTPUT IN CANNISTER. VSS, AFEBRILE. SR PER MONITOR. REFUSES TURNS STATING THAT SHE DOES NOT WANT TO LOOSE THE TUBE (EXTERNAL CATHER). SLOW PROGRESS TOWARDS DC GOALS, WILL CONTINUE TO MONITOR.
[2019-05-06 05:51] VITALS: BP 140/53
[2019-05-06 08:27] VITALS: BP 122/58
--- NOTE | 2019-05-06 11:21 | NUR ---
patient refusing to do ezpap therapy due to too difficult and she becomes sob, also refusing mucomyst because it makes her feel sick, dr horton called and was made aware of all this
[2019-05-06 12:08] LABS: BODY FLUID ALBUMIN 0.8 g/dL (Not Estab.); BODY FLUID AMYLASE 21 U/L (()); BODY FLUID GLUCOSE 154 mg/dL (()); BODY FLUID LDH 61 IU/L (()); BODY FLUID PROTEIN 1.8 g/dL (())
[2019-05-06 12:32] VITALS: BP 124/44
--- NOTE | 2019-05-06 13:19 | NUR ---
PT DISCHARGING TODAY TO [facility] FAXED DC ORDERS/SUMMARY TO FACILITY SPOKE WITH TALON IN ADM SHE RECEIVED DC ORDERS AND CAN ARRANGE TRANSPORT BY [facility] FOR 1400 TODAY. NOTIFIED PT'S MOTHER OF DC AND TIME OF TRANSPORT. UNIT NOTIFIED AND CHART COPY PER US. RN TO CALL REPORT TO [phone].
[2019-05-06] MEDS ORDERED: LEVAQUIN 500 M50012 PO (14:02)
[2019-05-06] MEDS ORDERED: ELIQUIS5 MG PO (14:03)
[2019-05-06] MEDS ORDERED: CARDIZEM CD 18180 M3 PO (14:04)
[2019-05-06] MEDS ORDERED: FUROSEMIDE 40 M40 MG PO (14:05)
[2019-05-06] MEDS ORDERED: PREDNISONE 10 M10 MG PO (14:05)
[2019-05-06] MEDS ORDERED: STIOLTO RESPIMAT4 GM INH (14:08)
[2019-05-06] MEDS ORDERED: PROAIR HFA8.5 GM INH (14:09)
[2019-05-06 14:34] LABS: CALCIUM 9.2 mg/dL (8.5-10.1); CREATININE 0.7 mg/dL (0.6-1.0); MAGNESIUM 1.9 mg/dL (1.8-2.4); POTASSIUM 3.6 mmol/L (3.5-5.1)
[2019-05-06] MEDS ORDERED: KLOR-CON 1010 MEQ PO (14:49)
[2019-05-06 14:53] VITALS: BP 132/50
--- NOTE | 2019-05-06 16:08 | NUR ---
PT CARE ASSUMED APPROX 0700. ASSESSMENTS CHARTED. PT DENIES PAIN AND SOA. VSS. PT INTERMITTENTLY DESATS BUT DENIES SOA. REFUSES BREATHING TREATMENTS AT TIME. IF SHE DESATS SHE BECOMES AGREEABLE TO BREATHING TREATMENT AND O2 SAT RETURNS WNL. TURNING PT Q2HRS AND PRN WHEN SHE ALLOWS. LYMPHEDEMA WRAPS IN PLACE. REPORT CALLED TO ALFREDO AT RECEIVING FACILITY. SHE DENIES QUESTION REGARDING POC. PT ALSO DENIES. IV OUT, TELE BOX OFF. TRANSPORTATION TO FACILITY TO ARRIVE APPROX 1630. NO DISTRESS NOTED.
[2019-05-07 10:17] LABS: SOURCE THORACENTESIS
--- NOTE | 2019-05-08 09:07 | PATH ---
[facility] [address] [place] [place] [address] PATHOLOGY RPT PROCEDURE Name: DIMITRI CORREA Room #: 208-P [facility] IN ..#: [id number] Admission: 04/29/19 Date of : 52 Discharge: 05/06/19 Report #: [id number] Path Case #: [id number] Note [facility] Accession Number: [id number] TESTS RESULT FLAG UNITS REF RANGE LAB Clinician Provided Cytology Information No. of containers..01 Other (Miscellaneous) Source: PLEURAL FLUID DIAGNOSIS: 02 PLEURAL FLUID NEGATIVE FOR MALIGNANT EPITHELIAL CELLS. MESOTHELIAL CELLS ARE PRESENT. THIS INTERPRETATION INCLUDES EVALUATION OF A CELL BLOCK. Pathologist ICD10: 02 A41.9 Signed out by: 02 Lucy Mccauley MD, Pathologist NPI- [id number] Performed by: Danyel Paz, Bag Grader ([facility]) Gross description: 01 8ML, YELLOW, CLOUDY /LCS 06/17/1840 0000 Local FLAG LEGEND: L-Low Normal,H-High Normal,LL-Alert Low,HH-Alert High <-Panic Low,>-Panic High,A-Abnormal,AA-Critical Abnormal Performed at: [address] [place] [address] Eliud Shepherd MD, [address] [address] Lucy Mccauley MD, Specimen Comment: A courtesy copy of this report has been sent to [phone] Specimen Comment: [id number] Specimen Comment: [id number] Specimen Comment: Report sent to ,DR OVIEDO / DR CALVERT Specimen Comment: A duplicate report has been generated due to demographic updates. Performed at: [address], [place], [place] [id number] [address] [address] PATHOLOGY RPT PROCEDURE Name: DIMITRI CORREA Room #: 208-P [facility] IN M.R.#: [id number] Admission: 04/29/19 Date of : 52 Discharge: 05/06/19 Report #: [id number] Path Case #: [id number] MD Eliud Shepherd [place] Phone: [phone]
--- NOTE | 2019-05-13 08:22 | HC ---
[facility] [place] [address] CONSULTATION Name: MADELINEDIMITRI A Room #: 208-P [facility] IN ..#: [id number] Admission: 04/29/19 Attend Phys: Cass Powell Discharge: 05/06/19 Date of : 51 Report #: [id number] THIS REPORT FOR: //name// CC: Cass García DATE OF SERVICE: 05/03/2019 INTRODUCTION: The patient is a 69-year-old female who is being seen in general podiatric consultation regarding nail care. This patient has been admitted with acute onset atrial fibrillation, cellulitis associated with severe lower extremity edema and sepsis. The patient has no history of diabetes. Denies a history of peripheral arterial disease and peripheral neuropathy. Pedal exam, dorsalis pedis, posterior tibial pulses were not palpated as the patient has skin sequela associated with chronic lower extremity edema. This includes severe hyperkeratosis, weeping wounds, and induration of both legs and therefore she is in full lower extremity compression dressings. Her toes are visible and the skin associated with the toes is severely hyperkeratotic and as a result of a chronic peripheral edema, her nails are thickened, elongated, show clinical evidence of onychodystrophy likely associated with onychomycosis and her peripheral edema disease. The patient states that she has not received any foot care in several months. There are no acute findings with regard to the visible aspects of her foot. She did have normal sensation with testing utilizing Franklin-Snow monofilament. IMPRESSION: 1. Severe lower extremity edema with severe skin sequelae, bilateral lower extremities. 2. Onychodystrophy associated with onychomycosis. The patient's nails were debrided. There was no additional pathology noted. Her skin and wound condition is being managed by our engineering documentation specialist. The patient is expecting to be transferred in the next 48 hours. It has been a pleasure having the opportunity of caring for this patient. We will be pleased to follow up with her upon request. <ELECTRONICALLY SIGNED> By: Dariusz Jovel DPM 05/13/19 0822 1004 1039 Dariusz Jovel DPM /nt
--- NOTE | 2019-05-13 12:03 | HC ---
[facility] [place] [address] CONSULTATION Name: DIMITRI CORREA Room #: 208-P [facility] IN ..#: [id number] Admission: 04/29/19 Attend Phys: Cass Powell Discharge: 05/06/19 Date of : 51 Report #: [id number] THIS REPORT FOR: //name// CC: Cass García DATE OF SERVICE: 04/30/2019 HISTORY OF PRESENT ILLNESS: The patient is a 69-year-old white female with history of bilateral lower extremity lymphedema, noted to be home bound for greater than a year, was having problems with increasing edema. She was placed on oral antibiotics at home, which were of no help. She had a nonsyncopal fall 2 days prior and has had increasing weakness. She premorbidly had utilized a cane, but was trying to utilize a walker and now note she is unable to ambulate secondary to weakness and pain with the bilateral lower extremity cellulitis. She has been diagnosed with sepsis secondary to lower extremity cellulitis. Venous insufficiency, atrial fibrillation with rapid ventricular rate. She has history of severe bilateral lower extremity lymphedema with increased swelling, pain and inflammation. She has been seen by Cardiology and has undergone a cardiac echo. We are seeing her in rehabilitation medicine consultation. PAST MEDICAL HISTORY: Includes lymphedema, cellulitis, breast augmentation, tubal ligation, chronic productive cough. ALLERGIES: PENICILLIN. SOCIAL HISTORY: She lives in a house alone, 3 steps in. Premorbid cane ambulator as noted above. Her 90-year-old mother lives next door, but would only be of limited assistance. There is a daughter that is in the area. The patient has been homebound as noted above. HABITS: Cigarette usage every day smoker, 1 pack per day for 50 years. No history of alcohol abuse. FAMILY HISTORY: Noncontributory. REVIEW OF SYSTEMS: Denies headache was not on oxygen premorbidly. No neurologic changes except for the increased weakness. No chest pain, shortness of breath, abdominal discomfort. She has increased pain of bilateral lower extremities. No dizziness. No nausea, emesis. Genitourinary changes, no complaints of anxiety and depression. PHYSICAL EXAMINATION: GENERAL: She is an obese 69-year-old white female, lying in bed, a little frustrated with her status, but no specific complaints. VITAL SIGNS: Temperature 99.3, pulse 78, respirations 20, blood pressure [facility] [address] [place] [address] CONSULTATION Name: DIMITRI CORREA Room #: 208-P [facility] IN M.R.#: [id number] Admission: 04/29/19 Attend Phys: Cass Powell Discharge: 05/06/19 Date of : 51 Report #: [id number] 103/40. She is alert. HEENT: Facies appeared symmetric. She is appropriate. She is on 2 liters nasal cannula. EXTREMITIES: She has functional range of motion of both upper extremities with strength grade 4-/5. ABDOMEN: She does have some exogenous obesity with an abdominal pannus. Lower extremities: She has marked lower extremity lymphedema with chronic verrucous type changes over bilateral feet, dorsi as well as over the legs themselves. There is some erythema and tenderness. She can dorsiflex both ankles, but again she has significant edema. ASSESSMENT: A 69-year-old white female with the following problem list: 1. Sepsis. 2. Bilateral lower extremity cellulitis. 3. Generalized weakness with medical complexity. 4. Recent nonsyncopal fall. 5. Atrial fibrillation with rapid ventricular rate. Cardiac workup underway. 6. Peripheral arterial disease. 7. Obesity. 8. Venous insufficiency. 9. Tobacco abuse. PLAN: Cardiac workup underway. Therapy evaluations are underway. We will be glad to follow along with you regarding her rehab therapy needs. <ELECTRONICALLY SIGNED> By: Terrell Diallo MD 05/13/19 1203 1217 1520 Terrell Diallo MD /[facility]
== END 2019-05-06 17:25 | DRG 871 ==
LOC: ER 15:22 → 2N 17:07 → EROBS 17:07 → 2N 18:00
PROVIDERS: Internal Medicine; Nurse Practitioner; Nurse Practitioner Family; Pediatrics; ADMIT Hospitalist
DX: A41.9 Sepsis, unspecified organism (principal); I50.33 Acute on chronic diastolic (congestive) heart failure; E43 Unspecified severe protein-calorie malnutrition; J96.01 Acute respiratory failure with hypoxia; J18.9 Pneumonia, unspecified organism; L03.116 Cellulitis of left lower limb; L03.115 Cellulitis of right lower limb; I48.20 Chronic atrial fibrillation, unspecified; J98.19 Other pulmonary collapse; J91.8 Pleural effusion in other conditions classified elsewhere; Z68.41 Body mass index [BMI] 40.0-44.9, adult; I89.0 Lymphedema, not elsewhere classified; I11.0 Hypertensive heart disease with heart failure; Z60.2 Problems related to living alone; F17.210 Nicotine dependence, cigarettes, uncomplicated; I73.9 Peripheral vascular disease, unspecified; I87.2 Venous insufficiency (chronic) (peripheral); E66.01 Morbid (severe) obesity due to excess calories; E87.6 Hypokalemia; I87.8 Other specified disorders of veins; G62.9 Polyneuropathy, unspecified; L60.3 Nail dystrophy; J43.9 Emphysema, unspecified; I08.1 Rheumatic disorders of both mitral and tricuspid valves; B35.1 Tinea unguium; Z66 Do not resuscitate; Z79.899 Other long term (current) drug therapy; Z88.0 Allergy status to penicillin; Z79.4 Long term (current) use of insulin; Z71.6 Tobacco abuse counseling; Z23 Encounter for immunization
CPT/HCPCS: 10081; 10194

== ENCOUNTER → 2019-05-19 | Outpatient (CLI) | payer OTHER ==
[~2019-05-19] MED LIST changes: +CARDIZEM CD 18180 M3 PO; +ELIQUIS5 MG PO; +FUROSEMIDE 40 M40 MG PO; +KEFLEX500 M2 PO; +KLOR-CON 1010 MEQ PO; +LEVAQUIN 500 M50012 PO; +PREDNISONE 10 M10 MG PO; +PROAIR HFA8.5 GM INH; +STIOLTO RESPIMAT4 GM INH
== END ==
LOC: RAD 11:13
DX: J43.9 Emphysema, unspecified (principal); R91.8 Other nonspecific abnormal finding of lung field; I51.7 Cardiomegaly; J90 Pleural effusion, not elsewhere classified; I70.0 Atherosclerosis of aorta

== ENCOUNTER 2020-01-22 18:02 | Emergency (ER) | payer OTHER ==
[~2020-01-22] VITALS: Ht 154.9 cm; Wt 104.3 kg
[2020-01-22 18:58] LABS: HEMATOCRIT 42.7 % (37.0-47.0); MCH 29.9 pg (26.0-34.0); MCHC 32.7 g/dL (28.0-37.0); MCV 91.3 fL (80.0-100.0); PLATELET COUNT 192 thou/uL (150-400); RBC 4.67 mil/uL (4.20-5.00); RDW 14.7 % (10.5-14.5); WBC 5.7 thou/uL (4.0-11.0)
[2020-01-22 18:59] LABS: CALCIUM 8.6 mg/dL (8.5-10.1); CREATININE 0.7 mg/dL (0.6-1.0); POTASSIUM 3.5 mmol/L (3.5-5.1)
[2020-01-22 19:22] LABS: TOTAL BILIRUBIN 0.4 mg/dL (0.2-1.0); TOTAL PROTEIN 6.9 g/dL (6.4-8.2)
[2020-01-22 19:47] LABS: ABSOLUTE NEUTROPHILS 4.1 thou/uL (1.4-8.2)
[2020-01-22 19:48] LABS: ANISOCYTOSIS 1+
[2020-01-22] MEDS ORDERED: LEVAQUIN 750 M750 MG PO (20:28)
[2020-01-22] MEDS ORDERED: LASIX 40 MG TAB40 MG PO (20:28)
[2020-01-22 20:52] VITALS: BP 157/66
--- NOTE | 2020-01-23 09:15 | EKG ---
[facility] [place] [address] ELECTROCARDIOGRAM REPORT Name: DIMITRI CORREA Room #: [facility]#: [id number] Admission: 01/22/20 Attend Phys: Discharge: 01/22/20 Date of : 52 Report #: [id number] THIS REPORT FOR: cc: Monty White MD, Neal A. MD Lundgren,Jacky Giraldo MD 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 01/23/20 0915 10 10 Jacky Chaparro MD, [facility] /EPI
== END 2020-01-22 21:35 | disposition home or self-care (01) ==
LOC: ER 18:02
PROVIDERS: Emergency Medicine
DX: I89.0 Lymphedema, not elsewhere classified (principal); Z88.0 Allergy status to penicillin; Z79.899 Other long term (current) drug therapy; Z98.51 Tubal ligation status

== ENCOUNTER 2020-01-29 12:42 | Inpatient (IN) | payer OTHER ==
[~2020-01-29] VITALS: Ht 154.9 cm; Wt 78.7 kg
--- NOTE | ~2020-01-29 | EMS ---
[place] [address] EMS Patient Care Report Name: DIMITRI CORREA Room #: REG SANDY Zelaya#: [id number] Admission: 01/29/20 Attend Phys: Discharge: Date of : 52 Report #: [id number] THIS REPORT FOR: //name// Report Transmitted: 01/29/2020 12:56 EMS Care Summary [place], [place]/[facility] Incident [id number] @ 01/29/2020 11:55 Incident Location [address] [place] [address] Patient DIMITRI CORREA Female, 69 Years 1950 Patient Address [address] [place] [address] Patient History Other,Emphysema,Atrial Fibrillation, Patient Allergies No known allergies, Patient Medications None Reported, Chief Complaint EXTREME EDEMA OF LEGS Disposition Transported No Lights/[place] Dispatch Reason Sick Person Transported To [facility] Narrative PT FOUND SITTING IN CHAIR. PT STATES THAT HER LEGS HAVE BEEN EXTREMELY SWOLLEN AND GETTING WORSE OVER LAST SEVERAL DAYS. PT DENIES TOHER COMPLAINTS. PT GIVEN MASK TO WEAR FOR TRANSPORT. TRANSFERED TO [facility] TURNING LATHE TENDER AND CARRIED OUT OF HOUSE TO COT WITHOUT INCIDENT. [place] [address] EMS Patient Care Report Name: DIMITRI CORREA Room #: REG SANDY Zelaya#: [id number] Admission: 01/29/20 Attend Phys: Discharge: Date of : 52 Report #: [id number] Initial Vitals @12:21P: 94,R: 18,BP: 144/54,Pain: 4/10,GCS: 15,CO: 3,SpO2: 86,Revised Trauma: 12, Assessments @12:02MENTAL:No Abnormalities,SKIN:No Abnormalities,HEENT:Head/Face: No Abnormalities,Eyes: No Abnormalities,Neck/Airway: No Abnormalities,LUNG SOUNDS:ABDOMEN:PELVIS//GI:EXTREMITIES:PULSE:NEURO:No Abnormalities, Impression Edema Procedures @12:02ALS AssessmentResponse: UnchangedSucceeded Timeline 11:54,Call Received 11:54,Dispatch Notified 11:55,Dispatched 11:57,En Route 12:01,On Scene 12:02,At Patient 12:02,ALS Assessment,Response: UnchangedSucceeded, 12:21,BP: 144/54 M,PULSE: 94,RR: 18 R,SPO2: 86 Ox,ETCO2: ,BG: ,PAIN: 4,GCS: 15, 12:22,Depart Scene 12:35,At Destination 12:49,Call Closed Disclaimer v1.1 Copyright 2020 [employer] This EMS Care Summary contains data elements from the applicable legal record (which may be displayed differently). It is designed to provide pertinent information for the following purposes: continuity of care, clinical quality, and state data reporting. The complete legal record is available to ED staff and administrators of the receiving hospital in ES's Patient Tracker. All data is provided "as is."
[~2020-01-29 12:42] MED LIST changes: +LASIX 40 MG TAB40 MG PO; +LEVAQUIN 750 M750 MG PO
[2020-01-29 12:43] VITALS: BP 123/95
[2020-01-29 13:18] LABS: ABSOLUTE NEUTROPHILS 4.3 thou/uL (1.4-8.2); BASOPHILS 0.4 % (0.0-2.0); HEMATOCRIT 42.8 % (37.0-47.0); HEMOGLOBIN 14.2 gm/dL (12.0-15.0); LYMPHOCYTES 14.9 % (24.0-44.0); MCHC 33.2 g/dL (28.0-37.0); MCV 90.4 fL (80.0-100.0); MONOCYTES 11.7 % (1.0-8.0); PLATELET COUNT 186 thou/uL (150-400); RBC 4.73 mil/uL (4.20-5.00); RDW 14.7 % (10.5-14.5)
--- NOTE | 2020-01-29 13:29 | NUR ---
DAUGHTER AT BEDSIDE TO ASSESS
[2020-01-29 15:48] LABS: ALBUMIN 2.9 g/dL (3.4-5.0); ANION GAP 11 mmol/L (7-16); BUN 23 mg/dL (7-18); CALCIUM 8.6 mg/dL (8.5-10.1); CHLORIDE 97 mmol/L (98-107); CO2 25 mmol/L (21-32); CREATININE 0.5 mg/dL (0.6-1.0); GLUCOSE 103 mg/dL (74-106); SODIUM 133 mmol/L (136-145); TOTAL BILIRUBIN 0.6 mg/dL (0.2-1.0); TOTAL PROTEIN 6.7 g/dL (6.4-8.2); TROPONIN-I <0.06 ng/mL (<0.06)
[2020-01-29 15:50] LABS: POTASSIUM 5.8 mmol/L (3.5-5.1)
[2020-01-29 16:21] LABS: SGOT 13 U/L (15-37); SGPT 48 U/L (14-59)
[2020-01-29 16:23] VITALS: BP 125/78
[2020-01-29 16:38] VITALS: BP 125/78
[2020-01-29 19:47] VITALS: BP 145/53
--- NOTE | 2020-01-29 20:21 | NUR ---
PT CAME TO THE FLOOR FROM ED AROUND 1744. PT ALERT X ORIENTED X 4. SHE IS PLEASANT , COOPERATIVE. ON 3L/O2/NC. PT USES 02 AT HOME. IV LEFT FORE ARM WITH ANTIBIOTICS RUNNING. PT'S DAUGHTER WAS WITH HER WHEN SHE CAME TO THE FLOOR. PT ADMITTED FOR B/L SWELLING OF FEET. STAT ORDERS OF ANTIBIOTIC ORDERED IN ED WAS GIVEN WHEN SHE ARRIVED ON THE FLOOR. PT CAME WITH CEFEPIME AND VANCOMYCIN. ADMISSION EDUCATION DONE. SHIFT REPORT GIVEN TO NIGHT NURSE.
--- NOTE | 2020-01-30 00:37 | NUR ---
Pt. c/o pain to her lower legs and po pain med given with some relief noted (see emar). Admission assessment and history is com- pleted. She does have a wound to her left buttocks (see poc). Bed alarm is on.
[2020-01-30 07:37] VITALS: BP 122/50
--- NOTE | 2020-01-30 08:12 | EKG ---
[facility] [place] [address] [place] [address] ELECTROCARDIOGRAM REPORT Name: MADELINECHINGAndrea Maldonado Room #: 456-P ADM IN M.R.#: [id number] Admission: 01/29/20 Attend Phys: Shelley Kumar MD Discharge: Date of : 52 Report #: [id number] THIS REPORT FOR: cc: Teodoro Pruitt MD, Joahn MD Couchonnal, Luis F. 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 : 1950 Requested By: Mariam Magaña Order Number: [id number] MD: Iker Bhagat Measurements Intervals [place] Rate: 87 P: 92 [place]: 198 QRS: 219 QRSD: 106 T: 52 QT: 394 QTc: 474 Interpretive Statements Sinus arrhythmia Inferior infarct, old Anterior infarct, age indeterminate Compared to ECG 01/22/2020 19:11:01 Myocardial infarct finding now present Sinus rhythm no longer present Poor R-wave progression no longer present Electronically Signed On 01-30-2020 8:12:11 CDT by Iker Bhagat [email or web address] <ELECTRONICALLY SIGNED> By: Iker Bhagat MD 01/30/20811 14 Iker Bhagat MD /EPI
--- NOTE | 2020-01-30 08:34 | NUR ---
Assess due to consult received. Class III obesity with BMI of 43.5. Admit with cellulitis, and buttock wound. Hx chronic lymphedema, venous insufficiency. Familiar with pt from prior admits. Large wt fluctuations fron highest 250 lb, down to 218, and now 230 lb past year. Pt voices appetite is okay but dislikes the hospital foods. Has hospital menu to order from alternative choices, denied any assist with ordering. No hx of diabetes, but has carb control diet ordered which will be beneficial for caloric control and obesity. Encouraged high protein food choices, no supplement needed unless eating less than 75% and limited protein intake. Low nutrition risk
--- NOTE | 2020-01-30 12:42 | NUR ---
ASSUMED CARE AT 0700. PT IS ALERT AND ORIENTED/ANXIOUS. VSSA/RA. BP WAS ELEVATED OVERNOC, STABLIZED NOW. BACK ON HOME MEDS. PT CONCERNS THIS AM WAS ABOUT BP AND HOME MEDS. TOLERATING DIET WITH NO GI ISSUES. NML. PIV INFUSING. FALL PRECAUTIONS IN PLACE, EDUCATED PT TO CALL IF NEEDS ARISE. CALL LIGHT IN REACH. WILL CONTINUE TO MONITOR
--- NOTE | 2020-01-30 13:56 | NUR ---
ASSUMED CARE AT 0700. PT ALERT AND ORIENTED, BUT SLEEPY. VSSA/2-3 L O2. ON TELE WITH NEW ONSET AFIB PER REPORT. GI/ NML. EXTERNAL FEMALE CATH IN PLACE. TOLERATING DIET. AC/HS ACCUCHECKS. STABLE. NEW PIV. INFUSING FINE. PAIN MEDS GIVEN ORDERED PRN. BLE ARE RED, SWOLLEN, WITH SOME AREAS OF BLISTERS. WOUND CARE ORDERES RECIEVED. WHEN PT WENT IN TO WORK WITH PT AROUND 1100, SHE STATED PT SAT WAS IN MID 60S AND HARD TO AROUSE. SHE TURNED HER 02 FROM 2 TO 8 L AT THAT TIME WITH IMPROVEMENT. PT ABLE TO WAKE AND SIT ON SIDE OF BED. NOTIFIED, PT STATED SHE DOES HAVE A H/O SLEEP APNEA. SHE IS ALSO A CURRENT SMOKER WITH EMPHYSEMA. PT IS BACK TO 3L O2. WILL MONITOR FALL PRECAUTIONS IN PLACE. EDUCATED PT TO CALL IF NEEDS ARISE. CALL LIGHT IN REACH. WILL CONTINUE TO MONITOR
--- NOTE | 2020-01-30 13:59 | NUR ---
PT ADMITTED RELATED TO CELLULITIS. CM REVIEWED CHART AND SPOKE WITH CARE TEAM. CM CALLED AND SPOKE WITH PT THIS DAY. SHE APPEARED TO BE A&O X4. CM ROLE INTRODUCED. PT INDICATED SHE LIVES IN A HOUSE ALONE WITH 8 STEPS TO ENTER AND NO STEPS INSIDE. 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 PT INDICATED SHE HAD BEEN ON SERVICE WITH [facility] TELEVISION STATION MANAGER. PT INDICATED SHE HAS HOME O2 THROUGH [facility] AND A NEBULIZER BUT THAT SHE HADN'T USED THEM TELEVISION STATION MANAGER. PT HAS BEEN TO [facility] IN THE PAST. PT'S PCP IS A MOBILE MED PHYSICIAN NAMED DR. JAQUELINE COLEMAN. CM NOTIFIED [facility] OF PT'S ADMISSION. THEY INDICATED THEY WOULD BE ABLE TO ACCEPT HER BACK ONTO SERVICED IF APPROPRIATE UPON DC. SHOULD PT BE MEDICALLY STABLE TO DC OVER THE WEEKEND AND NEED HH SERVICES CALL [facility] PHONE: FAX: . CM TO FOLLOW INDICATED WITH DC PLANNING.
[2020-01-30 14:20] LABS: CALCIUM 8.7 mg/dL (8.5-10.1); CREATININE 0.7 mg/dL (0.6-1.0)
--- NOTE | 2020-01-30 16:36 | 2DMMODE ---
[facility] [place] [address] 2 D/M-MODE ECHOCARDIOGRAM Name: DIMITRI CORREA Joel Room #: 456-P ADM IN M.R.#: [id number] Admission: 01/29/20 Attend Phys: Shelley Kumar MD Discharge: Date of : 52 Report #: [id number] THIS REPORT FOR: cc: Teodoro Pruitt MD, Joahn MD Lammoglia, Francisco J. MD ~ APPROVED REPORT Study performed: 01/30/2020 15:10:38 EXAM: Comprehensive 2D, Doppler, and color-flow Echocardiogram Patient Location: Bedside Room #: [facility] Status: routine BSA: 1.98 HR: 68 bpm BP: 122/59 mmHg Rhythm: NSR Other Information Study Quality: Adequate Indications Congestive Heart Failure Dyspnea Hypertension/HDD 2D Dimensions RVDd: 42.87 mm IVSd: 8.27 (7-11mm) LVOT Diam: 19.17 (18-24mm) LVDd: 42.89 mm PWd: 8.08 (7-11mm) Ascending Ao: 26.60 (22-36mm) LVDs: 28.59 (25-40mm) Aortic Root: 30.99 mm IVC: 26.00 mm Volumes Left Atrial Volume (Systole) Single Plane 4CH: 76.10 mL Single Plane 2CH: 76.55 mL LA ESV Index: 42.00 mL/m2 Aortic Valve AoV Peak Placido.: 2.05 m/s AO Peak Gr.: 16.83 mmHg LVOT Max P.06 mmHg LVOT Max V: 1.59 m/s [facility] [address] [place] [address] 2 D/M-MODE ECHOCARDIOGRAM Name: DIMITRI CORREA Room #: 456-P [facility] IN [facility]#: [id number] Admission: 01/29/20 Attend Phys: Curt Skaggs Discharge: Date of : 52 Report #: [id number] JONAH Vmax: 2.23 cm2 Mitral Valve E/A Ratio: 0.8 MV Decel. Time: 290.92 ms MV E Max Placido.: 1.14 m/s MV A Placido.: 1.43 m/s MV PHT: 84.37 ms IVRT: 110.73 ms Pulmonary Valve PV Peak Placido.: 1.35 m/s PV Peak Gr.: 7.31 mmHg Pulmonary Vein P Vein S: 0.54 m/s P Vein A: 0.28 m/s P Vein D: 0.47 m/s P Vein A Dur.: 78.4 msec P Vein S/D Ratio: 1.15 Tricuspid Valve TR Peak Placido.: 3.88 m/s TR Peak Gr.: 60.32 mmHg PA Pressure: 70.00 mmHg Left Ventricle The left ventricle is normal size. There is normal LV segmental wall motion. There is normal left ventricular wall thickness. The left ventricular systolic function is normal. The left ventricular ejection fraction is within the normal range. LVEF is 60-65%. This study is not technically sufficient to allow evaluation of the LV diastolic function. Right Ventricle Right ventricle is dilated. The right ventricular systolic function is normal. Atria Left atrium is dilated. Right atrium is dilated. Aortic Valve The aortic valve is normal in structure. The Aortic valve is sclerotic. No aortic regurgitation is present. There is no aortic valvular stenosis. Mitral Valve The mitral valve is normal in structure. Mild mitral regurgitation. No evidence of mitral valve stenosis. [facility] [address] [address] 2 D/M-MODE ECHOCARDIOGRAM Name: DIMITRI CORREA Room #: 456-P [facility] IN [facility].#: [id number] Admission: 01/29/20 Attend Phys: Curt Skaggs Discharge: Date of : 52 Report #: [id number] Tricuspid Valve The tricuspid valve is normal in structure. There is mild tricuspid regurgitation. Estiamted PAP 70 mmHg. There is severe pulmonary hypertension. Pulmonic Valve The pulmonary valve is normal in structure. There is no pulmonic valvular regurgitation. Great Vessels The aortic root is normal in size. IVC is dilated and collapses <50% with inspiration. Pericardium There is no pericardial effusion. <Conclusion> The left ventricle is normal size. LVEF is 60-65%. Right ventricle is dilated. Left atrium is dilated. Right atrium is dilated. The aortic valve is normal in structure. The Aortic valve is sclerotic. The mitral valve is normal in structure. Mild mitral regurgitation. The tricuspid valve is normal in structure. There is mild tricuspid regurgitation. Estiamted PAP 70 mmHg. There is severe pulmonary hypertension. The pulmonary valve is normal in structure. There is no pericardial effusion. <ELECTRONICALLY SIGNED> By: Yonny Dutton MD 01/30/20 1636 1636 1636 Yonny Dutton MD /INF
[2020-01-30 20:05] VITALS: BP 151/55
--- NOTE | 2020-01-31 00:15 | NUR ---
ASSUMED CARE OF PT AT 1900. PT IS A/O X4. ANSWERS ALL QUESTIONS APPROPRIATELY BUT DOES APPEAR TO BE VERY TIRED THIS EVENING. SHE'S BEEN SLEEPING A LOT. VSS. NO C/O OF PAIN OR DISCOMFORT. FALL PRECAUTIONS ARE IN PLACE, CALL LIGHT IS WITHIN REACH. WILL CONTINUE TO MONITOR.
--- NOTE | 2020-01-31 04:54 | HC ---
[facility] [place] [address] CONSULTATION Name: DIMITRI CORREA Room #: 456-P ADM IN M.R.#: [id number] Admission: 01/29/20 Attend Phys: Shelley Kumar MD Discharge: Date of : 52 Report #: [id number] THIS REPORT FOR: cc: Teodoro Pruitt MD, Joahn MD Barry, Joseph W. MD ~ CC: Shelley Pruitt DATE OF SERVICE: 01/30/2020 INFECTIOUS DISEASE CONSULTATION ATTENDING PHYSICIAN: Dr. Kumar. REASON FOR EVALUATION: Bilateral lower extremity severe chronic lymphedema with a component of elephantiasis. Apparently, has ongoing issues with lower extremity drainage, has worsened over recent days, had been seen in the ER, was felt to have a cellulitic component, was treated with antibiotics and diuretics specifically Levaquin and Lasix; however, had returned due to increasing pain and discomfort associated in particularly the left with drainage, noted foul odor as well. It is not clear that she had significant fevers. She has had anorexia up until recently. She is on supplemental oxygen at 2 liters and that has been fairly stable. Denies significant change overall, gastrointestinal-related complaints. Blood cultures collected are negative thus far. Initial CBC, white count of 6.0. Chest x-ray did show changes, mild vascular congestion, mild interstitial infiltrates, some basilar opacities. Lactic acid 1.1. ProBNP of 106. Creatinine of 0.5 and albumin was 2.9. Due to concern about complicated situation with infection, she was started on combination broad-spectrum parenteral therapy with cefepime and vancomycin. ALLERGIES: LISTED TO PENICILLIN, although is able to take cephalosporins, apparently. MEDICATIONS: Include the topical gentamicin, cefepime, vancomycin, hydrocodone/acetaminophen, was given some diuretic with furosemide as well. PAST MEDICAL AND SURGICAL HISTORY: As described above, severe bilateral chronic lymphedema with changes to distal lower extremities including the feet, elephantiasis, it has been complicated by infection, was hospitalized in 04/2019, tubal ligation, breast augmentation, chronic cough. SOCIAL HISTORY: Smokes cigarettes. No ethanol. No illicit drug use. FAMILY HISTORY: Noncontributory. [facility] [address] [place] [address] CONSULTATION Name: DIMITRI CORREA Joel Room #: 456-P [facility] IN [facility].#: [id number] Admission: 01/29/20 Attend Phys: Shelley Kumar MD Discharge: Date of : 52 Report #: [id number] REVIEW OF SYSTEMS: As above. PHYSICAL EXAMINATION: GENERAL: She appears chronically ill, undernourished, pleasant, cooperative, moderate distress. She is somewhat lethargic. VITAL SIGNS: Temperature 98.6, pulse 80, respirations 17, blood pressure 122/50. SKIN: Warm, dry. HEENT: Normocephalic. Extraocular muscles intact. NECK: Supple. LUNGS: Diminished breath sounds. Few scattered crackles. HEART: Regular. ABDOMEN: Obese, soft, nontender. EXTREMITIES: Bilateral lower extremities profound changes with generalized thickening of the skin and ____ type picture, particular the left side. There is overt odor too with evident drainage over the dorsum of the foot in particular. There is a moderate degree of inflammation. GENITOURINARY/RECTAL: Deferred. LABORATORY DATA: Electrolytes; sodium 143, potassium 4.0, chloride 104, bicarbonate is 34, BUN and creatinine 17 and 0.5, anion gap of 5, glucose of 114. Blood cultures sterile thus far. LFTs unremarkable. Albumin 2.9, total protein 6.7. Estimated GFR of 123. ProBNP of 106. Lactic acid 1.1. Chest x-ray as described above. ASSESSMENT AND PLAN: Bilateral lower extremity chronic lymphedema, likely left, complicated by skin and soft tissue infection with cellulitis. We will continue broad-spectrum therapy, would not be surprising of some polymicrobial etiology. She noted she has been on therapy on and off since April. She "does not think it was ever cured." Difficult to ascertain how we would make that determination given the marked changes at baseline. We will monitor expectantly risk for additional types of nosocomial-related complications. We will add incentive spirometry, optimize her nutritional status as allowed. <ELECTRONICALLY SIGNED> By: Joao Reyes MD 01/31/20 0454 1625 1658 Joao Reyes MD /nt
[2020-01-31 08:38] VITALS: BP 149/52
[2020-01-31 15:33] VITALS: BP 136/48
--- NOTE | 2020-01-31 19:35 | NUR ---
Assumed pt care at 7am.Assessment completed.vss.Pt has flat affect and c/o bilat lower extremities.Dr Kumar here,order noted.Pt refused drsg change to lower extremities related too tender and painful to touch.Pt went for cta later this afternoon per bed and returned later.Pt has very poor appetite . Repositioned as needed for comfort.Pt on o2 at 3lnc continuosly.Pain med given later this shift with relief.Will continue to monitor.
[2020-01-31 19:38] VITALS: BP 127/40
[2020-02-01 05:54] LABS: CALCIUM 9.1 mg/dL (8.5-10.1); CREATININE 0.5 mg/dL (0.6-1.0); POTASSIUM 3.6 mmol/L (3.5-5.1)
--- NOTE | 2020-02-01 06:25 | NUR ---
ASSUMED CARE OF PT AT 1900. PT IS A/O X4. REFUSED TO ALLOW DRSG TO BE APPLIED TO LE. DID ALLOW THEM TO BE CLEANED AND MEDICATED CREAM TO BE APPLIED. DOES STILL C/O PAIN. PRN PAIN MEDICATION GIVEN ORDERED. PT C/O DYSPNEA AND REQUESTED A BRTX. NOTIFIED RT OF PT REQUEST. AT THIS TIME, PT IS IN BED WITH LEGS AND HOB ELEVATED. WILL CONTINUE TO MONITOR.
[2020-02-01 07:50] VITALS: BP 133/57
[2020-02-01 16:18] VITALS: BP 134/52
--- NOTE | 2020-02-01 19:05 | NUR ---
A/O, calm and pleasant; refused dressing on legs, cream adminstrated as ordered. aparna FABIAN, complained abdomen uncomfortable mildly at the end of the shift. will pass it on to the night nurse to keep monitoring. Oxygen stauration dropped to 87% at 3 L, inceased O2 to 3.5 L, back to 3 L after doctor's advice, tolerated well.
[2020-02-01 19:15] VITALS: BP 142/59
--- NOTE | 2020-02-02 05:51 | NUR ---
PATIENT ALERT AND ORIENTED X4. 02NC 3L TOLERATING W/O SOA. IV ABX INFUSED W/O COMPLICATION. VANCO TROUGH TO BE DRAWN THIS AM AT 0630. BILATERAL LOWER LEGS WITH CELLULITIS AND WOUNDS. FEMALE EXTERNAL CATHETER IN PLACE. COUGH, NO SPUTUM NOTED. RESTING QUIETLY. WILL MONITOR.
[2020-02-02 07:26] VITALS: BP 145/66
[2020-02-02 12:22] LABS: CALCIUM 8.5 mg/dL (8.5-10.1); CREATININE 0.5 mg/dL (0.6-1.0); MAGNESIUM 1.7 mg/dL (1.8-2.4); POTASSIUM 3.6 mmol/L (3.5-5.1); TROPONIN-I 0.06 ng/mL (<0.06)
--- NOTE | 2020-02-02 15:43 | NUR ---
FAXED CLINICAL UPDATE TO [facility] RECEIVED CONFIRMATION . DP TO FOLLOW.
[2020-02-02 15:50] VITALS: BP 113/47
--- NOTE | 2020-02-02 15:54 | NUR ---
SPOKE WITH [facility] THIS DAY. THEY WERE AWAITING UPDATED THERAPY NOTES PT HADN'T BEEN UP WORKING WITH THERAPY OF SUNDAY. PT HAVING ISSUES WITH HEART RATE TODAY. CARE TEAM CONTINUES TO MONITOR. CM TO FOLLOW INDICATED WIHT DC PLANNING.
[2020-02-02 19:46] VITALS: BP 138/53
--- NOTE | 2020-02-02 19:57 | NUR ---
Assumed pt care at 7am.Assessment completed.vss.but has irregular heart rate per telemetry.Dr Kumar notified.Consult called to Dr Kessler and order noted. Cardizem and toprol po given.Cream applied to bilat lower extremities as ordered.Repositioned pt in bed for comfort.Pt might possibly dc to [facility] in am.
--- NOTE | 2020-02-03 06:18 | NUR ---
ASSUMED PT CARE AT 1915. PT IS A&O. VSS. IV IN LEFT AC. PT COMPLAINED OF PAIN WHEN REPOSITIONING. PT USES 5 L OF O2 WITH NASAL CANULA. PT HAS CELULITIS/ LYMPHADEMA BLE. PT IS INCONTINENT. PT STATES THAT SHE TOLD DAY STAFF THAT HER CATHETER WAS NOT WORKING BUT THEY WOULDN'T CHECK IT. EXTERNAL CATHETER IS PRESENT. COMPLETED A FULL BED CHANGE DUE TO WIC NOT WORKING PROPERLY. REPLACED THE EXTERNAL CATH. PT IS RESTING IN ROOM. WILL CONTINUE TO MONITOR.
[2020-02-03 07:29] VITALS: BP 147/53
--- NOTE | 2020-02-03 09:59 | HC ---
[facility] [place] [address] CONSULTATION Name: DIMITRI CORREA Room #: 456-P ADM IN M.R.#: [id number] Admission: 01/29/20 Attend Phys: Shelley Kumar MD Discharge: Date of : 51 Report #: [id number] THIS REPORT FOR: cc: Teodoro Pruitt MD, Joahn MD Althoff, Jeffrey R. MD ~ CC: Shelley Pruitt DATE OF SERVICE: 01/30/2020 CHIEF COMPLAINT: Gluteal pressure ulceration. HISTORY OF PRESENT ILLNESS: This is a 69-year-old female patient with whom I am familiar from previous evaluation. She has a history of chronic lymphedema, but has not been seen by us in quite a while. She presents to the Emergency Department with worsening redness in the lower extremities, was noted to have pressure ulceration on the gluteal region. The patient has been on Lasix, but has had increasing pain and swelling. ALLERGIES: PENICILLIN. MEDICATIONS: Levaquin, Eliquis, Cardizem, furosemide, prednisone, Stiolto, albuterol, potassium. SOCIAL HISTORY: The patient currently smokes, negative for alcohol use. FAMILY HISTORY: Noncontributory. REVIEW OF SYSTEMS: CONSTITUTIONAL: The patient denies fever, chills or weight loss. NEUROLOGICAL: The patient denies focal weakness. ENT: The patient denies earache, nasal drainage, sore throat. CARDIOVASCULAR: The patient denies chest pain, palpitations or diaphoresis. PULMONARY: The patient denies cough or shortness of breath. GASTROINTESTINAL: The patient denies nausea, vomiting, diarrhea or abdominal pain. ORTHOPEDIC: The patient has pain and swelling of the lower extremities bilaterally. Other systems in a 14-point review of systems are negative. PHYSICAL EXAMINATION: VITAL SIGNS: At this time include temperature 98.6, pulse 80, respiratory rate 17, blood pressure 122/50. GENERAL: This is a chronically ill-appearing female patient who appears to be in no distress. [address] [address] CONSULTATION Name: DIMITRI CORREA Joel Room #: 456-P [facility] IN ..#: [id number] Admission: 01/29/20 Attend Phys: Shelley Kumar MD Discharge: Date of : 51 Report #: [id number] HEENT: Head normocephalic. Nose and throat are clear. NECK: Supple. LUNGS: Clear. ABDOMEN: Bowel sounds present. EXTREMITIES: Lower extremities demonstrate significant swelling and redness bilaterally with some mucopurulent drainage. She has a small stage 3 pressure ulceration to the left buttock measuring 1.8 x 0.5 x 0.1 cm. It is relatively clean and granulating. CLINICAL IMPRESSION: 1. Lymphedema, bilateral lower extremities. 2. Cellulitis, bilateral lower extremities. 3. Stage 3 pressure ulcer of the left gluteal region. RECOMMENDATIONS: At this point in time, we will recommend topical care with gentamicin and Xeroform, ABD and then lightly apply Kerlix and Hari to bilateral lower extremities, elevation whenever possible and recommend moisture barrier cream to the sacral gluteal region b.i.d. Continuation of current medications and nutritional support. I appreciate being asked to see her in consultation. <ELECTRONICALLY SIGNED> By: Gilles Mathews MD 02/03/20 0959 [id number] 1407 Gilles Mathews MD /nt
[2020-02-03] MEDS ORDERED: XARELTO20 MG PO (10:49)
[2020-02-03] MEDS ORDERED: MAGNESIUM400 MG PO (10:49)
[2020-02-03] MEDS ORDERED: CARDIZEM CD 18180 M3 PO (10:49)
[2020-02-03] MEDS ORDERED: IPRAT-ALBUT 0.5-3 ML INH (10:49)
[2020-02-03] MEDS ORDERED: METOPROLOL SUCC50 MG PO (10:49)
[2020-02-03] MEDS ORDERED: GENTAMICIN SULF15 GM TOP (10:49)
[2020-02-03] MEDS ORDERED: VITAMIN D21250 MC1 PO (10:49)
[2020-02-03] MEDS ORDERED: LASIX 40 MG TAB40 M1 PO (10:49)
[2020-02-03] MEDS ORDERED: HYDROCODON-ACE1 EAC7 PO (10:49)
[2020-02-03] MEDS ORDERED: B-12500 MCG PO (10:49)
[2020-02-03] MEDS ORDERED: AMMONIUM LACTA226 GM TOP (10:49)
[2020-02-03] MEDS ORDERED: CEFDINIR300 MG PO (12:39)
--- NOTE | 2020-02-03 13:18 | NUR ---
CARE TEAM INICATED THAT PT IS MEDICALLY STABLE TO DC TO [facility] SKILLED THIS DAY. CM HAD FAXED OVER THERAPY NOTES YESTERDAY BUT PT HAD [facility] DUE TO ISSUES WITH HEART RATE. PT AND OT NOTES WERE SENT TO [facility] FOR REVIEW BUT THEY INDICATED THEY DON'T HAVE ANY OPEN BEDS TO EVEN ACCEPT PT TODAY. CM NET WITH PT AT BEDSIDE THIS DAY TO SEE IF SHE WAS RECEPTIVE TO 5N ASSESSING TO SEE IF SHE WOULD BE APPROPRIATE FOR ADMISSION. PT INDICATED SHE HATES THE FOOD HERE AND SHE WOULDN'T STAY IF SHE QUALIFIED SHE INDICATED SHE WILL WAIT FOR A BED AT [facility]. AWAITING INFO FROM [facility] TO WHEN THEY ANTICIAPTE HAVING A BED OPEN. CM TO FOLLOW INDICATED WITH DC PLANNING.
--- NOTE | 2020-02-03 16:04 | EKG ---
[facility] [place] [address] ELECTROCARDIOGRAM REPORT Name: CORREACHINGAndrea Maldonado Room #: 456- ADM IN M.R.#: [id number] Admission: 01/29/20 Attend Phys: Shelley Kumar MD Discharge: Date of : 51 Report #: [id number] THIS REPORT FOR: cc: Teodoro Pruitt MD, Joahn MD Couchonnal, Luis F. MD ~ THIS REPORT FOR: //name// [facility] Test Date: 2020-02-02 Test Time: 13:00:23 Pat Name: DIMITRI CORREA Department: Room: [facility] Gender: F Telecommunication Operator: Curt VILLARREAL : 1950 Requested By: Mehnaz Chavez Order Number: [id number] MD: Iker Bhagat Measurements Intervals Harned Rate: 120 P: 85 WY: 178 QRS: 36 QRSD: 96 T: 37 QT: 373 QTc: 528 Interpretive Statements Sinus tachycardia Multiform atrial premature complexes Probable anterior infarct, age indeterminate Compared to ECG 01/29/2020 13:15:43 Electronically Signed On 02-03-2020 16:04:28 CDT by Iker Bhagat [email or web address] <ELECTRONICALLY SIGNED> By: Iker Bhagat MD 02/03/20 1604 1300 1300 Iker Bhagat MD /EPI
--- NOTE | 2020-02-03 18:42 | NUR ---
PT IS AOX4, VSS, CALLS APPROPRIATELY. NO DISTRESS NOTED, FALL PRECAUTIONS IN PLACE. CALL LIGHT IN REACH, WILL CONTINUE TO MONITOR.
[2020-02-03 20:04] VITALS: BP 141/40
--- NOTE | 2020-02-04 05:21 | NUR ---
ASSUMED PT CARE AT APPROX 1925. PT IS A&O X4. VSS. FALL PREC IN PLACE. PT USES CALL LIGHT APPROPRIATELY. PT CANT SEEM TO GET COMFORTABLE IN THE BED. PT TAKES MEDS WILLINGLY. PT HAS A FEMALE EXTERNAL CATH IN PLACE (REPLACED AT 0445 02/04/20). PT DOES ASSIST WITH THE ROLE WHEN NEEDING TO BE CHANGED. WILL CONTINUE TO MONITOR.
[2020-02-04 07:31] VITALS: BP 137/40
[2020-02-04] MEDS ORDERED: PREDNISONE 20 M20 MG PO (08:45)
[2020-02-04] MEDS ORDERED: IPRAT-ALBUT 0.5-3 ML INH (08:45)
[2020-02-04 09:11] LABS: CREATININE 0.4 mg/dL (0.6-1.0)
--- NOTE | 2020-02-04 13:16 | NUR ---
FAXED REFERRAL TO [facility] SPOKE WITH TRAN IN ADM SHE RECEIVED REFERRAL AND WILL REVIEW. DP TO FOLLOW.
--- NOTE | 2020-02-04 13:24 | NUR ---
Received awake on bed. Due medications given as prescribed, able to swallow meds w/o difficulty. On O2 at 5lpm via nasal cannula. On telemetry, no complaints of chest pain, crushing sensation and heaviness. On carb controlled diet- tolerating well; no nausea, no vomiting and no abdominal pain noted. On blood sugar monitoring- taken and recorded accordingly. Incontinent of bowel and bladder, checked frequently and changed as needed. No IV noted on patient upon assessment. With bilateral leg cellulitis, wound photos to be taken when able. No complaints of pain made during assessments. Pt refusing to be turned. Assisted in ADLs. Vital signs stable. Pt seen and examined by Dr Kumar this morning, pt wheezy- breathing treatments ordered; pt for saturation assessment- RT Forrest informed, will be coordinating with PT re: assessment since pt has not been out of bed for a few days already; one time IV steroids given as prescribed, new IV inserted at L wrist. Pt complained of nausea, no PRN medication prescribed- Dr Kumar informed; orders obtained for medication. With telephone order from physician that pt is not for discharge today, possibly tomorrow- DEXTER Bonilla informed as well. To continue monitoring patient.
--- NOTE | 2020-02-04 14:29 | NUR ---
CARE TEAM INDICATED THAT PT ISN'T MEDICLLY STABLE TO DC THIS DAY. [facility] REFERRAL AND THEY ARE REVIEWING IT. PT IS MAUSEATED AND NEEDS O2 TESTING DONE. CM TO JARRETT INDICATED WITH DC PLANNING.
[2020-02-04 16:50] VITALS: BP 135/45
[2020-02-04 19:36] LABS: BE(vivo) 12.8 mmol/L (-2 to +3); HCO3 46.6 mmol/L (22.0-26.0); PO2 61.9 mmHg (80.0-100.0); sO2 84.6 % (92.0-98.0)
[2020-02-04 19:37] LABS: PCO2 116.1 mmHg (35.0-45.0); pH 7.221 (7.360-7.450)
[2020-02-04 20:04] VITALS: BP 140/45
--- NOTE | 2020-02-05 01:02 | NUR ---
CARE ASSUMED AT 1900 PATIENT WAS IN BED ASLEEP. PATIENT BLE HAVE CELLULITIES, EDEMA+3 ELEVATED BLE. PATIENT IS SOA WITH ACTIVITIES. PATIENT PH WAS CL 7.221 AND PCO2 WAS CH 166.1, DR BURGOS. CALLED NO NEW ORDERS. FALL PRECAUTION IN PLACE. PATIENT IN BED ASLEEP AT THIS TIME BREATHING BREATHING REGULAR AND UNLABOURED.
[2020-02-05 05:26] LABS: HEMOGLOBIN 14.1 gm/dL (12.0-15.0); MCH 29.8 pg (26.0-34.0); MCHC 32.1 g/dL (28.0-37.0); MCV 92.7 fL (80.0-100.0); RBC 4.75 mil/uL (4.20-5.00); RDW 13.9 % (10.5-14.5); WBC 3.3 thou/uL (4.0-11.0)
[2020-02-05 05:49] LABS: CALCIUM 9.6 mg/dL (8.5-10.1); CREATININE 0.6 mg/dL (0.6-1.0); POTASSIUM 4.8 mmol/L (3.5-5.1)
[2020-02-05 07:25] VITALS: BP 139/37
[2020-02-05 11:02] LABS: BE(vivo) 12.8 mmol/L (-2 to +3); HCO3 45.3 mmol/L (22.0-26.0); PO2 79.6 mmHg (80.0-100.0); sO2 92.7 % (92.0-98.0)
[2020-02-05 11:04] LABS: PCO2 105.9 mmHg (35.0-45.0); pH 7.249 (7.360-7.450)
--- NOTE | 2020-02-05 11:11 | NUR ---
Assumed patient care at 0715. [facility] shift nurse notified this nurse that Dr Lerner needs to be notified of respirations 30 or above. Upon this nurse's assessment patient was lethargic, spit her medications out. Diastolic blood pressures have been 31-[address] Kumar notified, [facility] called. Patient to be transferred to CCU.
[2020-02-05 11:38] VITALS: BP 126/44
--- NOTE | 2020-02-05 11:56 | NUR ---
1110-RESPONDED TO BEDSPREAD SEAMER. & NURSE FIREWALL ENGINEER IN ROOM. PT TO TRANSFER TO CCU.--VW
--- NOTE | 2020-02-05 11:56 | NUR ---
REC NOTE THAT PT WAS COMING DOWN AFTER RAT AT 1110, REC PT SAME TIME I HAD ANOTHER PT'S BG AT 27 NURSES LEFT PT IN 205 AROUND 1135, I WAS FINALLY ABLE TO COME IN AROUND 1155, SHE'S A&0X3-4, TIRED. DR BRUGOS CAME IN AND ORDERED PICC LINE AND 1400 ABGS. WILL CONTINUE TO MONITOR PT, SHOWED HER CALL LIGHT USE.
--- NOTE | 2020-02-05 14:15 | NUR ---
[facility] CAN ACCEPT PT FOR ADMISSION ONCE MEDICALLY STABLE. A [facility] HAD BEEN CALLED ON PT THIS AM AND PT WAS TRANSFERED TO CCU ROOM 205. CM TO FOLLOW INDICATED WITH DC PLANNING.
--- NOTE | 2020-02-05 14:18 | NUR ---
VASCULAR ACCESS NOTE ORDER FOR PICC LINE VERIFIED. CONSENT OBTAINED FROM PATIENT. RUE VASCULATURE ACCESSED. R BRACHIAL VEIN WIDELY PATENT ON EXAM. PATIENT PREPPED AND DRAPED UNDER STERILE CONDITIONS. LIDOCAINE 1% 3ML GIVEN SUB Q. VEIN CANNULATED WITH ONE ATTEMPT. GUIDEWIRE [facility]VANCED EASILY. VEIN DILATED. GUIDEWIRE REMOVED INTACT. 4FR DL PICC TRIMMED TO 43CM. INSERTED TO 43CM INTERNAL AND 0CM EXTERNAL. BOTH LUMENS FLUSH AND DRAW EASILY. PATIENT TOLERATED PROCEDURE WELL. CXR FOR PLACEMENT VERIFICATION. TIP IN MID SVC. PICC RELEASED FOR IMMEDIATE USE TO [facility].
[2020-02-05 14:44] LABS: BE(vivo) 12.9 mmol/L (-2 to +3); HCO3 46.5 mmol/L (22.0-26.0); PO2 107.8 mmHg (80.0-100.0); sO2 96.3 % (92.0-98.0)
[2020-02-05 14:56] LABS: PCO2 120.7 mmHg (35.0-45.0); pH 7.204 (7.360-7.450)
[2020-02-05 15:42] VITALS: BP 123/42
[2020-02-05 21:47] VITALS: BP 128/47
[2020-02-05 23:32] VITALS: BP 116/62
--- NOTE | 2020-02-06 00:12 | NUR ---
UPON INITIAL ASSESSMENT NURSE IDENTIFIED PATIENT BEING IN RESPIRATORY DISTRESS AND PULLING AT HER BIPAP. THE RT IN THE ROOM NOTIFIED NURSE THAT PATIENTS RESPIRATIONS ARE AT EIGHT WITHOUT THE AID OF THE BIPAP. NURSE CONTACTED DISTRICT SALES MANAGER TO UPDATE ON PATIENTS STATUS. ORDERS OBTAINED FOR TRANSFER TO ICU WHEN BED IS AVAILABLE ALY CATHETER, AND MORPHINE FOR AIR HUNGER. PATIENT IS LETHARGIC BUT AROUSABLE AND NOTIFIED NURSE TO LEFT SIDED CHEST PAIN. ORDERS RECEIVED FROM ADMINISTRATIVE MANAGER FOR EKG AND STAT TROPONIN WHICH WAS NEGATIVE. PATIENT IS NO LONGER STATING CHEST PAIN.
[2020-02-06 00:54] VITALS: BP 142/31
[2020-02-06 04:16] VITALS: BP 140/55
--- NOTE | 2020-02-06 04:30 | NUR ---
PATIENT BECAME LESS LETHARGIC. PROVIDER NOTIFIED OF PATIENTS CURRENT STATUS WITH ORDERS RECEIVED TO CLOSELY MONITOR PATIENT FOR ANY SIGNS OF DETERIORATION AND PROMPTLY CALL PROVIDER. PATIENT IS TO STAY IN CCT STATUS FOR NOW.
[2020-02-06 05:46] LABS: HEMATOCRIT 40.1 % (37.0-47.0); HEMOGLOBIN 13.2 gm/dL (12.0-15.0); MCHC 32.8 g/dL (28.0-37.0); MCV 91.4 fL (80.0-100.0); RBC 4.39 mil/uL (4.20-5.00); RDW 13.6 % (10.5-14.5); WBC 5.5 thou/uL (4.0-11.0)
[2020-02-06 06:14] LABS: ANION GAP 1 mmol/L (7-16); BUN 40 mg/dL (7-18); CALCIUM 9.2 mg/dL (8.5-10.1); CHLORIDE 97 mmol/L (98-107); CO2 40 mmol/L (21-32); CREATININE 0.7 mg/dL (0.6-1.0); GLUCOSE 121 mg/dL (74-106); POTASSIUM 4.5 mmol/L (3.5-5.1); SODIUM 138 mmol/L (136-145); TROPONIN-I <0.06 ng/mL (<0.06)
--- NOTE | 2020-02-06 07:48 | NUR ---
BEFORE RECEIVING REPORT PT YELLING OUT, PULLING OFF MASK, SAID SHE WAS NAUSEAS. ADDRESSED W/MEDS, ENCOURAGED HER TO KEEP MASK ON, WILL PRESENT TO PHYSICIAN TO SEE IF ANYTHING FOR ANXIETY APPLICABLE. WILL CONTINUE TO MONITOR. SEE SEPARATE INTERVENTIONS FOR ASSESSMENTS. ON BIPAP, BLOOD GASES ASKEW. ENCOURAGED HER TO USE CALL LIGHT VERSUS YELLING.
--- NOTE | 2020-02-06 08:27 | EKG ---
[facility] [place] [address] ELECTROCARDIOGRAM REPORT Name: CORREADIMITRI Joel Room #: 205- ADM IN M.R.#: [id number] Admission: 01/29/20 Attend Phys: Shelley Kumar MD Discharge: Date of : 52 Report #: [id number] THIS REPORT FOR: cc: Teodoro Pruitt MD, Joahn MD Lundgren,Jacky Giraldo MD [facility] ~ THIS REPORT FOR: //name// [facility] Test Date: 2020-02-05 Test Time: 11:13:53 Pat Name: DIMITRI CORREA Department: Room: [facility] Gender: F Signal Constructor: NADIA : 1950 Requested By: Shelley Kumar Order Number: [id number] MD: Jacky Chaparro Measurements Intervals [place] Rate: 60 P: 79 KS: 164 QRS: 47 QRSD: 92 T: 27 QT: 434 QTc: 434 Interpretive Statements Sinus rhythm Multiple premature complexes, vent & supraven Poor R wave progression Compared to ECG 02/02/2020 13:00:23 Sinus tachycardia no longer present Electronically Signed On 02-06-2020 8:27:18 CDT by Jacky Chaparro [email or web address] <ELECTRONICALLY SIGNED> By: Jacky Chaparro MD, [facility] 02/06/20 0827 1113 [id number] Jacky Chaparor MD, [facility] /EPI
[2020-02-06 08:47] VITALS: BP 117/42
--- NOTE | 2020-02-06 08:49 | EKG ---
[facility] [place] [address] [place] [address] ELECTROCARDIOGRAM REPORT Name: DIMITRI CORREA Joel Room #: 205- ADM IN M.R.#: [id number] Admission: 01/29/20 Attend Phys: Shelley Kumar MD Discharge: Date of : 52 Report #: [id number] THIS REPORT FOR: cc: Teodoro Pruitt MD, Joahn MD Lundgren,Jacky Giraldo MD [facility] ~ THIS REPORT FOR: //name// [facility] Test Date: 2020-02-05 Test Time: 20:56:08 Pat Name: DIMITRI CORREA Department: Room: [facility] Gender: F Geophysical Computer: JUANITO MEYER : 1950 Requested By: Iker Bhagat Order Number: [id number] MD: Jacky Chaparro Measurements Intervals [place] Rate: 58 P: 94 ND: 158 QRS: -17 QRSD: 94 T: 26 QT: 401 QTc: 394 Interpretive Statements Sinus rhythm Occasional atrial premature complexes Borderline left axis deviation Probable anterior infarct, age indeterminate Baseline wander in lead(s) V2 Compared to ECG 02/05/2020 11:13:53 Premature ventricular complexes are no longer present Electronically Signed On 02-06-2020 8:49:20 CDT by Jacky Chaparro [email or web address] <ELECTRONICALLY SIGNED> By: Jacky Chaparro MD, [facility] 02/06/20848 55 55 Jacky Chaparro MD, [facility] /EPI
[2020-02-06 11:46] VITALS: BP 142/51
--- NOTE | 2020-02-06 13:59 | NUR ---
CASE MANAGEMENT/INSURANCE SALES SUPERVISOR: DAUGHTER, REBA, ASKS FOR YOU TO PLEASE CALL WHEN CONVENIENT TO DISCUSS OPTIONS UPON DISCHARGE (SHE'S AWARE THAT MAY BE AWHILE) [phone] REBA SUMNER
[2020-02-06 16:47] VITALS: BP 127/47
--- NOTE | 2020-02-06 17:28 | NUR ---
Pt remains on bipap. Dtr here earlier and notes she found a suicide note in pt's purse. Nursing notified the attending. Possible psych consult. DC plan is for snf at [facility] when medically stable; dc time frame uncertain given her current respiratory issues. Will reassess and f/u with her dtr on Sunday.
[2020-02-06 20:28] VITALS: BP 131/37
[2020-02-07] VITALS (9 sets, daily range): BP systolic 133–156; BP diastolic 38–58
[2020-02-07 05:31] LABS: HEMATOCRIT 40.7 % (37.0-47.0); HEMOGLOBIN 13.3 gm/dL (12.0-15.0); MCH 30.3 pg (26.0-34.0); MCHC 32.8 g/dL (28.0-37.0); MCV 92.6 fL (80.0-100.0); RBC 4.39 mil/uL (4.20-5.00); RDW 13.8 % (10.5-14.5); WBC 5.5 thou/uL (4.0-11.0)
[2020-02-07 06:01] LABS: CALCIUM 9.2 mg/dL (8.5-10.1); CREATININE 0.9 mg/dL (0.6-1.0); POTASSIUM 4.5 mmol/L (3.5-5.1)
[2020-02-07 06:28] LABS: URINE BLOOD 3+ (Negative); URINE CLARITY CLEAR; URINE COLOR YELLOW; URINE GLUCOSE-RANDOM* NEGATIVE (Negative); URINE KETONES 1+ (Negative); URINE LEUKOCYTES NEGATIVE (Negative); URINE NITRITE NEGATIVE (Negative); URINE PROTEIN (DIPSTICK) TRACE (Negative); URINE SPECIFIC GRAVITY >= 1.030 (1.005-1.035); URINE UROBILINOGEN 0.2 E.U./dl (0.2-1.0)
[2020-02-07 06:31] LABS: ICTOTEST (BILI CONFIRMATORY) Negative (Negative); URINE BILIRUBIN NEGATIVE (Negative)
[2020-02-07 06:55] LABS: CASTS None Seen /LPF (None Seen); MUCUS 4-6 Moderate strn/LPF (None Seen); SQUAMOUS 4-10 Moderate /LPF (0-3)
[2020-02-07 06:56] LABS: BACTERIA 1-9 Few /HPF (None Seen); CRYSTALS None Seen /LPF (None Seen); URINE WBC 6-15 Few /HPF (0-5); WBC CLUMPS Few (None Seen)
--- NOTE | 2020-02-07 08:37 | NUR ---
ASSUME CARE 1900. PT/VITALS STABLE. UNABLE TO COMMUNICATE NEEDS BUT APPEARS GENERALLY STABLE. NO DISTRESS NTOED. POOR TOLERANCE TO ACTIVITY. ASSESSMENT CHARTED. PROGRESSING MODERATELY TO POC. PT TOLERATING BIPAP WELL WITH FIO2 INCREASED TO 60% AND PT SATS INCEASING FROM 89-90% ON 40% FIO2 TO 94-95%. ALY IN PLACE WITH ADEQUATE URINE OUTPUT NOTED. PLAN IS TO CONTINUE WITH ABX/BRETHING TREATMENTS AND MONITOR RESPIRATORY FUNCTION. WILL CONTINUE TO MONITOR AND FOLLOW WITH POC
--- NOTE | 2020-02-07 16:29 | NUR ---
PT CARE ASSUMED AT 0700. ASSESSMENTS CHARTED. MEDICATION CHARTED. PT TO BE STRICT NPO PER DR PRINCE; PT TENDS TO POCKET MEDS RATHER THAN SWALLOWING. WOUND CARE PERFORMED. PT OCCASIONALLY REMOVES BIPAP MASK; IS EASILY REDIRECTED. NIKI TO ORDER IV MEDS TO REPLACE NEEDED PO MEDS. BLE LYMPHEDEMA. ALY.
[2020-02-08] VITALS (8 sets, daily range): BP systolic 131–182; BP diastolic 50–82
[2020-02-08 05:40] LABS: HEMOGLOBIN 14.5 gm/dL (12.0-15.0); MCH 29.8 pg (26.0-34.0); MCHC 32.3 g/dL (28.0-37.0); MCV 92.3 fL (80.0-100.0); RBC 4.87 mil/uL (4.20-5.00); RDW 14.3 % (10.5-14.5); WBC 7.9 thou/uL (4.0-11.0)
[2020-02-08 05:41] LABS: BE(vivo) 10.6 mmol/L (-2 to +3); HCO3 41.2 mmol/L (22.0-26.0); PO2 57.8 mmHg (80.0-100.0); sO2 85.8 % (92.0-98.0)
[2020-02-08 05:42] LABS: PCO2 84.6 mmHg (35.0-45.0); pH 7.305 (7.360-7.450)
[2020-02-08 05:54] LABS: CALCIUM 9.3 mg/dL (8.5-10.1); CREATININE 0.8 mg/dL (0.6-1.0); MAGNESIUM 2.2 mg/dL (1.8-2.4); POTASSIUM 4.1 mmol/L (3.5-5.1)
--- NOTE | 2020-02-08 07:35 | NUR ---
ASSUME CARE 1900. VITAKS STABLE. PT IS A/O TO PERSON ONLY, IMPULSIVE AND RESTLESS. NOTED CONFUSION ALL THROUGH THE NIGHT WITH PT CONSTANTLY PULLING ON BIPAP. VERY POOR TOLERANCE TO BIPAP NOTED THROUGH THE NIGHT. UODATED SWIMMING PROFESSOR AND ORDERS ON HALDOL GIVEN. HALDOL GIVEN FOLLOWED BY MORPHINE ABOUT 45MINS LATER BUT PT STILL VERY RESTLEES, ANXIOUS AND PULLING ON BIPAP. SWIMMING PROFESSOR UPDATED AGAIN BUT NOT COMFORTABLE WITH RESTRAINST OR INCREASING SEDATIVE. ASSESSMENT CHARTED. POOR PROGRESS TO POC. PLAN IS TO CONTINUE TO MONITOR AND IMPROVE RESP FUNCTION
--- NOTE | 2020-02-08 16:01 | NUR ---
VASCULAR ACCESS NOTE PATIENT HAD PULLED RUE PICC THIS AM. NEW ORDER FOR PICC PLACEMENT. CONSENT OBTAINED FROM DPOA. LUE ULTRASOUND ASSESSMENT SHOWS BRACHIAL VEIN WIDELY PATENT. PATIENT PREPPED AND DRAPED UNDER STERILE CONDITIONS. LIDOCAINE 1% 3ML GIVEN SUB Q. VEIN CANNULATED WITH ONE ATTEMPT. GUIDEWIRE ADVANCED EASILY. VEIN DILATED. GUIDEWIRE REMOVED INTACT. 4FR DL PICC TRIMMED TO 42 CM. 40CM INTERNAL WITH 2CM EXTERNAL. BOTH LUMENS FLUSH AND DRAW EASILY. CXR CONFIRMATION OF PLACEMENT. LINE RELEASED FOR IMMEDIATE USE TO MITCH SHELTON
--- NOTE | 2020-02-08 18:37 | NUR ---
PT CARE ASSUMED AT 0700. ASSESSMENTS CHARTED. MEDICATION CHARTED. PT EXTREMELY AGITATED THIS AM; PULLED VICTORIA PICC LINE; PULLED OXIMETER SENSOR X 2; PULLED ALL LEADS X 2. MORPHINE AND HALDOL ADMINISTERED TO SMALL EFFECT. OBTAINED ORDER FOR MITTEN RESTRAINTS. PT SPENT TIME ATTEMPTING TO REMOVE MITTENS RATHER THAN BIPAP; BIPAP PREVIOUSLY REMOVED EIGHT TIMES. OBTAINED ORDER FOR LORAZEPAM; ADMINISTERED TO MUCH BETTER EFFECT. MARY ANN PICC OBTAINED BY IV THERAPY; ALRIGHT TO USE.
[2020-02-09] VITALS (7 sets, daily range): BP systolic 142–219; BP diastolic 50–91
--- NOTE | 2020-02-09 04:09 | NUR ---
ASSUMED CARE OF THE PATIENT AT 1900. MITT RESTRAINTS IN PLACE. Q2H RESTRAINT CHECKS COMPLETED. BIPAP LEFT IN PLACE THROUGH NOC. SKIN BREAK DOWN ON BRIDGE OF NOSE NOTED. WILL CONTINUE TO MONITOR.
[2020-02-09 05:57] LABS: ANION GAP < 0 mmol/L (7-16); BUN 42 mg/dL (7-18); CALCIUM 8.9 mg/dL (8.5-10.1); CHLORIDE 104 mmol/L (98-107); CO2 44 mmol/L (21-32); CREATININE 0.6 mg/dL (0.6-1.0); GLUCOSE 131 mg/dL (74-106); POTASSIUM 4.4 mmol/L (3.5-5.1); SODIUM 143 mmol/L (136-145)
--- NOTE | 2020-02-09 06:08 | NUR ---
PER DAUGHTER PATIENT STATED IN ER THAT MORPHINE CAUSES ILLUSIONS/HALLUCINATIONS
--- NOTE | 2020-02-09 06:56 | NUR ---
RECIEVE IN REPORT PT ON BIPAP AND BILAT MITTS PER NURSING ADMINISTRAION.
--- NOTE | 2020-02-09 10:24 | NUR ---
REQUEST TO HOLD THERAPY, PATIENT CONSISTENTLY USING BIPAP THE LAST FEW DAYS THIS O.T. HAS CHECKED BACK, INTERMITTENTLY RESTLESS/AGITATED. CM THIS OT SPOKE TO REPORTS SHE HAS BEEN MADE DNR AND DR. PRINCE TALKING TO FAMILY ABOUT PALLIATIVE CARE. O.T. TO HOLD THERAPY AT THIS TIME, PLEASE RE-CONSULT O.T. SERVICES WHEN APPROPRIATE FOR INTERVENTIONS.
--- NOTE | 2020-02-09 13:57 | NUR ---
Pt ON BIPAP, WEARING BILAT MITTS, AND WITH HIGH LEVEL OF CO2. SO, P.T. DEFERRED AGAIN TODAY. Pt HAS BEEN VARIANCE IN P.T. ON 02/01 AND THEN FROM 02/03 UNTIL THE PRESENT D/T Pt BEING CONSISTENTLY ON BIPAP. Pt HAS ALSO BEEN INTER- MITTENTLY RESTLESS/AGITATED. Pt DOCUMENTATION, Pt HAS BEEN MADE DRN AND DR. PRINCE IS TALKING TO FAMILY ABOUT PALLIATIVE CARE. WILL PLACE Pt ON HOLD AT THIS TIME. PLEASE RE-CONSULT P.T. SERVICES WHEN APPROPRIATE. THANK YOU.
--- NOTE | 2020-02-09 16:35 | NUR ---
TALK TO TAWNYA TODAY AND INFORM OF PALLIATIVE CARE CONSULT AND SHE AGREES. CONTINUE Q2 HOUR TURN AND ORAL CARE. WILL GIVEN ATIVAN PRN AND HOLD MORPHINE PER DAUGHTER REQUEST.
[2020-02-10] VITALS: BP 158/98
[2020-02-10 04:54] VITALS: BP 145/59
--- NOTE | 2020-02-10 07:51 | NUR ---
ASSUMED PT CARE AT 1900, ALERT AND ORIENTED, PT BP WAS ELEVATED AT THE BEGINNING OF THE SHIFT, ELECTROPLATING SALES REPRESENTATIVE NOTIFIED, ORDERS RECEIVED, WENT INTO AFIB, WITH HR IN 150S, CARDIOLOGY NOTIFIED, CARDIZEM STARTED, BP STABILIZED, WENT TO SB/SA AT 0230, CARDIZEM STOPPED, REMAINS ON BIPAP, STABLE OVERNIGHT, DAUGHTER UPDATED ABT PT, PASSED ON REPORT
[2020-02-10 08:21] VITALS: BP 144/67
--- NOTE | 2020-02-10 09:15 | NUR ---
ASSUMED CARE OF PT AT SHIFT CHANGE, ON BIPAP, NOT PULLING AT MASK AT THIS TIME, MITTENS OFF, WILL REMEDY AND ASK FOR CONTINUED ORDER. ALERT TO NAME AT THIS TIME. WOUND ORDERS TO BE FULFILLED LATER IN SHIFT ABLE, REPORTS OF AFIB RVR LAST NIGHT, GTT D/C'D D/T HRS IN 40S AND B/PS LOWER. WILL CONTINUE TO MONITOR. SEE SEPARATE INTERVENTIONS FOR ASSESSMENTS
--- NOTE | 2020-02-10 11:03 | NUR ---
Nutrition: NPO on bipap. Pt now comfort care, RD deferring further evals.
[2020-02-10 12:46] VITALS: BP 161/94
[2020-02-10 16:11] VITALS: BP 156/71
--- NOTE | 2020-02-10 16:19 | NUR ---
Dr Brown with Pallative Care evaled patient today and in discussion with dtr regarding pallative care. patient cont with restraints and BIPAP.
--- NOTE | 2020-02-10 16:32 | NUR ---
FAXED CLINICAL UPDATE TO [facility] RECEIVED CONFIRMATION AND LEFT MSG WITHE ADM. NUNN TO FOLLOW.
--- NOTE | 2020-02-10 18:45 | NUR ---
DR PRINCE, AT 1104, MESSAGED TO RENEW MITTEN RESTRAINTS, TIME FRAME OVER AT 1308. HE OKAYED RENEWAL, JUST CHECKED AT 1843 AND RENEWED
[2020-02-10 20:13] VITALS: BP 160/60
[2020-02-11 01:01] VITALS: BP 143/72
--- NOTE | 2020-02-11 05:20 | NUR ---
ASSUMED PT CARE AT THE CHANGE OF SHIFT, PT IS AWAKE, ALERT AND ORIENTED WITH CONFUSION, CAN MAKE NEEDS KNOWN, SA ON THE MONITOR, TACHY WHEN AWAKE AND RESTLESS, REMAINED ON BIPAP OVERNIGHT, ATIVAN AND HALDOL GIVEN FOR ANXIETY AND AGITATION, BP ELEVATED, PRN HYDRALIZINE GIVEN PER ORDERS, PT REMAINED STABLE, NO ACUTE DISTRESS NOTED, QTURNS MAINTAINED, ASSESSMENTS CHARTED, REMAINED ON BIPAP OVERNIGHT PER DR. FARR. WILL CONTINUE TO MONITOR
[2020-02-11 06:07] VITALS: BP 140/64
[2020-02-11 07:51] VITALS: BP 141/63
[2020-02-11 12:04] VITALS: BP 113/56
--- NOTE | 2020-02-11 12:17 | NUR ---
ADULT DTR HERE. BIPAP STOPPED PER FAMILY REQUEST, O2 PER NC. TRANSIENT TACHYCARDIA NOTED; LOPRESSOR ADMIN ORDERED. COMFORT CARE; FREQUENT CHECKS, TURNS.
[2020-02-11 15:07] VITALS: BP 105/61
[2020-02-11 19:30] VITALS: BP 104/66
--- NOTE | 2020-02-12 05:40 | NUR ---
ASSUMMED PT CARE AT THE CHANGE OF SHIFT, PT WAS TACHY ON THE MONITOR, SINUS ARRYTHMIA, NONRESPONSIVE TO STIMULI, MEDICATED FOR SOA AND ANXIETY ORDERED, ASSESSMENTS CHARTED, PT THIS AM AT 0400, WAS ASYSTOLE ON THE MONITOR, CONFIRMED WITH THE SECOND NURSE, FAMILY NOTIFIED AT 0407, MINE INSPECTOR NOTIFIED AT 0403, MTN CALLED WITHIN 60 MINUTES AT 0413, CONSULTING PHYSICIANS UPDATED, DANCE ARTIST ALSO UPDATED AT THE TIME OF , BODY PREPPED AND BAGGED, BODY RELEASED TO [facility] [place] AT 0548
== END 2020-02-12 04:00 | DRG 871 ==
LOC: ER 12:42 → EROBS 16:07 → 2N 16:07 → 4W 16:07 → 2N 02-05 11:32
PROVIDERS: Internal Medicine; Internal Medicine Pulmonary Disease; Physician Assistant; ADMIT Hospitalist; ATTEND Hospitalist
PROC: 5A09557 Assistance with Respiratory Ventilation, Greater than 96 Consecutive Hours, Continuous Positive Airway Pressure (ICD-10-PCS; principal; 2020-02-05)
PROC: 02HV33Z Insertion of Infusion Device into Superior Vena Cava, Percutaneous Approach (ICD-10-PCS; principal; 2020-02-05)
DX: A41.9 Sepsis, unspecified organism (principal); L89.323 Pressure ulcer of left buttock, stage 3; J18.9 Pneumonia, unspecified organism; J96.21 Acute and chronic respiratory failure with hypoxia; J96.22 Acute and chronic respiratory failure with hypercapnia; G92 Toxic encephalopathy; E44.0 Moderate protein-calorie malnutrition; I47.1 Supraventricular tachycardia; L03.116 Cellulitis of left lower limb; L03.115 Cellulitis of right lower limb; L97.929 Non-pressure chronic ulcer of unspecified part of left lower leg with unspecified severity; L97.919 Non-pressure chronic ulcer of unspecified part of right lower leg with unspecified severity; J44.0 Chronic obstructive pulmonary disease with (acute) lower respiratory infection; E87.5 Hyperkalemia; I89.0 Lymphedema, not elsewhere classified; Z20.828 Contact with and (suspected) exposure to other viral communicable diseases; Z60.2 Problems related to living alone; R32 Unspecified urinary incontinence; I27.21 Secondary pulmonary arterial hypertension; G47.33 Obstructive sleep apnea (adult) (pediatric); I10 Essential (primary) hypertension; I27.81 Cor pulmonale (chronic); E53.9 Vitamin B deficiency, unspecified; E55.9 Vitamin D deficiency, unspecified; I73.9 Peripheral vascular disease, unspecified; Z74.1 Need for assistance with personal care; I48.0 Paroxysmal atrial fibrillation; R23.8 Other skin changes; I87.8 Other specified disorders of veins; R65.20 Severe sepsis without septic shock; Z66 Do not resuscitate; Z51.5 Encounter for palliative care; R41.0 Disorientation, unspecified; Z91.19 Patient's noncompliance with other medical treatment and regimen; Z68.32 Body mass index [BMI] 32.0-32.9, adult; Z88.0 Allergy status to penicillin; Z88.8 Allergy status to other drugs, medicaments and biological substances; Z71.6 Tobacco abuse counseling; Z79.899 Other long term (current) drug therapy
CPT/HCPCS: 10040; 10045; 10081; 27000